=== PATIENT | female | born 1980 | race Caucasian/White ===

== ENCOUNTER 2020-06-16 19:00 | Outpatient (RCR) | payer OTHER, SELFPAY | END 2020-06-16 20:00 | disposition home or self-care (01) | LOC: EMPH 19:00 | PROVIDERS: Referring Provider Family Medicine Geriatric Medicine; Visit Provider Family Medicine Geriatric Medicine | DX: Z11.59 Encounter for screening for other viral diseases (principal) | CPT/HCPCS: 87635; U0003 ==

== ENCOUNTER 2020-07-17 17:00 | Outpatient (RCR) | payer OTHER, SELFPAY | END 2020-07-19 23:59 | LOC: EMPH 17:00 | PROVIDERS: Referring Provider Family Medicine Geriatric Medicine; Visit Provider Family Medicine Geriatric Medicine | DX: Z03.818 Encounter for observation for suspected exposure to other biological agents ruled out (principal) | CPT/HCPCS: 87426 ==

== ENCOUNTER → 2020-07-17 18:13 | Outpatient (CLI) | payer OTHER, SELFPAY | PROVIDERS: Visit Provider Family Medicine Geriatric Medicine | DX: Z00.00 Encounter for general adult medical examination without abnormal findings (principal) | CPT/HCPCS: 87426 ==

== ENCOUNTER 2020-08-13 10:49 | Outpatient (RCR) | payer OTHER, SELFPAY | END 2020-08-18 23:59 | LOC: EMPH 10:49 | PROVIDERS: Referring Provider Family Medicine Geriatric Medicine; Visit Provider Family Medicine Geriatric Medicine | DX: Z03.818 Encounter for observation for suspected exposure to other biological agents ruled out (principal) | CPT/HCPCS: 87426 ==

== ENCOUNTER 2020-09-17 16:52 | Outpatient (RCR) | payer OTHER, SELFPAY | END 2020-09-18 23:59 | LOC: EMPH 16:52 | PROVIDERS: Referring Provider Family Medicine Geriatric Medicine; Visit Provider Family Medicine Geriatric Medicine | DX: Z03.818 Encounter for observation for suspected exposure to other biological agents ruled out (principal) | CPT/HCPCS: 87426 ==

== ENCOUNTER 2020-10-06 08:46 | Outpatient (RCR) | payer OTHER, SELFPAY | END 2020-10-19 23:59 | LOC: EMPH 08:46 | PROVIDERS: Referring Provider Family Medicine Geriatric Medicine; Visit Provider Family Medicine Geriatric Medicine | DX: Z03.818 Encounter for observation for suspected exposure to other biological agents ruled out (principal) | CPT/HCPCS: 87426 ==

== ENCOUNTER 2021-02-09 08:13 | Outpatient (RCR) | payer OTHER, SELFPAY | END 2021-02-16 23:59 | LOC: EMPH 08:13 | PROVIDERS: Visit Provider Family Medicine Geriatric Medicine | DX: Z03.818 Encounter for observation for suspected exposure to other biological agents ruled out (principal) | CPT/HCPCS: 87426 ==

== ENCOUNTER 2021-03-18 19:43 | Outpatient (RCR) | payer OTHER, SELFPAY | END 2021-03-18 23:59 | LOC: EMPH 19:43 | PROVIDERS: Visit Provider Family Medicine Geriatric Medicine | DX: Z03.818 Encounter for observation for suspected exposure to other biological agents ruled out (principal) | CPT/HCPCS: 87426 ==

== ENCOUNTER 2021-04-09 20:04 | Observation (INO) | payer OTHER, SELFPAY ==
[2021-04-09 20:05] VITALS: BP 140/105; PULSE 82; RESP 16; TEMP 36.3; O2SAT 99; BMI 23.7
--- NOTE | 2021-04-09 20:23 | EDS_ITS ---
HPI History of Present Illness Chief Complaint: Flank Pain Detail of Chief Complaint: Left flank pain that started yesterday. Informant: patient Narrative Narrative: Patient describes discomfort to the left upper quadrant that radiates through to her back. Pain is been continuous. Tylenol seems to take the edge off of it. Patient has history of kidney stones but this feels somewhat different. She denies urinary symptoms. She denies fever. She is had some mild nausea but no vomiting. Pain worse with certain movements and deep breath. Patient states that she takes Excedrin daily for headaches. She denies any blood in her stool or black tarry stools. Patient does have history of constipation but has had normal bowel movements last several days in a row. Prior similar symptoms: No PFSH PFSH Medical History (Updated 04/09/21 @ 23:[address] Cari Gunter, DO) Kidney stones Pneumonia Home Medications NK 04/09/21 [History Last Taken Unknown] Allergy/AdvReac Type Severity Reaction Status Date / Time No Known Allergies Allergy Verified 04/09/21 20:26 Surgical History (Updated 04/09/21 @ 20:54 by Vi Coker) H/O: hysterectomy Social History (Updated 11/24/17 @ 15:41 by Charles DIAZ, PA) Smoking Status: Never smoker ROS ROS ED Constitutional Constitutional ED: Reports systems reviewed and no addt'l complaints, except as documented; Denies body ache(s), change in weight or chills Eyes Eyes: Denies acute decrease in peripheral vision, change in vision, double vision or loss of vision ENT ENT ED: Reports none; Denies ear pain, lip swelling, loss taste/smell, neck pain, otalgia or sore throat Cardiovascular Cardiovascular: Reports none; Denies abdominal pain, chest pain with activity, leg edema, lightheadedness, palpitations, rapid heart rate or syncope Respiratory/Chest Respiratory/Chest: Reports none; Denies change in mental status, dry cough, dyspnea, hemoptysis, shortness of breath at rest or shortness of breath with exertion Gastrointestinal Gastrointestinal: Reports none, abdominal pain and nausea; Denies change in stool character, diarrhea, hematemesis, hematochezia, melena, rectal bleeding or vomiting Genitourinary Genitourinary ED: Reports none; Denies abdominal discomfort, anuria, dysuria, genital pain or polyuria Musculoskeletal Musculoskeletal: Reports none and back pain; Denies arthralgias, difficulty walking, extremity pain, muscle weakness or myalgias Integumentary Reports none; Denies abscess or rash Neurologic Neurologic: Reports none; Denies abnormal gait, confusion, focal weakness, frequent falls, headache(s), loss of vision, numbness, paresthesias, radicular pain, vertigo or weakness Psychiatric Psychiatric: Reports systems reviewed and no addt'l complaints, except as documented and none; Denies behavioral changes, confusion, difficulty concentrating, hallucinations, suicidal ideation, tactile hallucinations or visual hallucinations Endocrine Endocrinology: Denies none, cold intolerance, excessive sweating, fatigue or heat intolerance Hematologic/Lymphatic Hematologic/Lymphatic: Reports none; Denies anemia, easy bleeding or easy bruising Allergic/Immunologic Allergic/Immunologic ED: Denies as per HPI, none, lip swelling, mouth swelling, throat swelling, tongue swelling or hives EXAM Physical Exam Const Vital Signs: 04/09/21 20:05 Temperature 97.4 F L Temperature Source Temporal Pulse Rate 82 Respiratory Rate 16 Blood Pressure 140/105 H Blood Pressure Mean 116 Pulse Ox 99 Oxygen Delivery Method Room Air Positive well nourished and well developed General Appearance ED: well developed and NAD HEENT Reports TM's clear and moist mucous membranes normocephalic and atraumatic; Negative for trauma or tenderness Tympanic Membrane ED: Yes TM's clear Eyes PERRL and EOMs intact bilaterally General Eye ED: Negative for pale conjunctiva or scleral icterus Neck no lymphadenopathy, supple and no JVD General: Negative for tenderness Chest Wall inspection of chest normal and palpation of chest normal Chest: Negative for tenderness Resp normal respiratory effort and clear to auscultation bilaterally Effort and Inspection: Negative for respiratory distress or pain with movement Auscultation: Negative for rhonchi, wheezes or diminished lung sounds Cardio regular rate, regular rhythm, S1 normal heart sound, S2 normal heart sound and no murmurs Peripheral Pulses: pulses 2+ throughout GI normal to inspection, nondistended, normoactive bowel sounds, soft to palpation, non-tender, non-distended and no masses GI Narrative: Patient has tenderness palpation over the left upper quadrant with guarding. She has CVA tenderness on the left. There is no rebound, rigidity, or peritoneal signs. Palpation: tender Back/Spine no CVA tenderness and no thoracic nor lumbar tenderness Extremity normal to inspection General Extremety ED: Negative for edema General Extremity: Negative for edema Neuro oriented x3, CN's II-XII intact bilaterally, no sensory deficits noted and gait normal Sensorium / Orientation: awake, alert, oriented to person, oriented to place and oriented to time Motor Exam: strength 5/5 throughout and strength abnormal Psych mental status grossly normal Skin no rashes or lesions noted and no wounds MDM MDM MDM Narrative Medical decision making narrative: Patient required multiple doses of pain medication here. She was given morphine 4 mg as well as Dilaudid 1 mg followed by another milligram of Dilaudid 1 mg. Patient continues to complain of left upper abdomen pain. CT scan of her chest showed soft tissue mass in her left hilum and raise the possibility of sarcoid versus sequela from prior infection. She also had a nodular mass in her left lower lobe. Patient also was noted to have a heterogenous mass in her spleen. Patient will need evaluation by pulmonology and pain control. Patient to be admitted. Lab Data Attestation: I reviewed the patient's lab results. Labs: Laboratory Results - last 24 hr 04/09/21 04/09/21 04/09/21 20:40 20:40 20:40 WBC 7.5 RBC 4.64 Hgb 13.1 Hct 41.0 MCV 88.4 MCH 28.2 MCHC 32.0 RDW Std Deviation 41.5 RDW Coeff of Keely 13.0 Plt Count 315 MPV 10.2 Immature Gran % (Auto) 0.400 Neut % (Auto) 65.0 Lymph % (Auto) 25.5 [place] % (Auto) 7.3 Eos % (Auto) 1.5 Baso % (Auto) 0.3 Absolute Neuts (auto) 4.9 Absolute Lymphs (auto) 1.92 Nucleated RBC % 0 D-Dimer Quant (PE/DVT) 1.44 H* Sodium 139 Potassium 3.5 Chloride 106 Carbon Dioxide 28.0 Anion Gap 5 BUN 11 Creatinine 0.93 Estim Creat Clear Calc 67.18 Est GFR (MDRD) Af Amer 86 Est GFR (MDRD) Non-Af 71 BUN/Creatinine Ratio 11.8 Glucose 98 Lactic Acid Calcium 9.0 Total Bilirubin 0.50 AST 12 L ALT 17 Alkaline Phosphatase 90 Total Protein 7.7 Albumin 3.7 Globulin 4.0 Albumin/Globulin Ratio 0.9 Lipase 217 Urine Color Urine Clarity Urine pH Ur Specific [place] Urine Protein Urine Glucose (UA) Urine Ketones Urine Occult Blood Urine Nitrite Urine Bilirubin Urine Urobilinogen Ur Leukocyte Esterase Urine RBC Urine WBC Ur Squamous Epith Cells Urine Bacteria Urine Mucus 04/09/21 04/09/21 20:40 21:20 WBC RBC Hgb Hct MCV MCH MCHC RDW Std Deviation RDW Coeff of Keely Plt Count MPV Immature Gran % (Auto) Neut % (Auto) Lymph % (Auto) [place] % (Auto) Eos % (Auto) Baso % (Auto) Absolute Neuts (auto) Absolute Lymphs (auto) Nucleated RBC % D-Dimer Quant (PE/DVT) Sodium Potassium Chloride Carbon Dioxide Anion Gap BUN Creatinine Estim Creat Clear Calc Est GFR (MDRD) Af Amer Est GFR (MDRD) Non-Af BUN/Creatinine Ratio Glucose Lactic Acid 1.6 Calcium Total Bilirubin AST ALT Alkaline Phosphatase Total Protein Albumin Globulin Albumin/Globulin Ratio Lipase Urine Color Yellow Urine Clarity Clear Urine pH 6.0 Ur Specific [place] 1.020 Urine Protein 15 H Urine Glucose (UA) Normal Urine Ketones 5 H Urine Occult Blood Negative Urine Nitrite Negative Urine Bilirubin Negative Urine Urobilinogen Normal Ur Leukocyte Esterase Negative Urine RBC 0 SEEN Urine WBC 0-5 SEEN Ur Squamous Epith Cells 10-25 SEEN Urine Bacteria 2+ Urine Mucus 0 SEEN Radiography Diagnostic Testing: Radiology Impression Abdomen/Pelvis CT 04/09/21 21:33 IMPRESSION: Patchy airspace disease in the left lower lobe suggesting infection. Nodular masslike component in the left lung base. Otherwise, unremarkable exam. Electronically Signed: Rick Novak DO at 22:58 EDT Tel , Service support , Chest CTA 04/09/21 21:33 IMPRESSION: 1. 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 2. There is prominent benign appearing calcifications within the mediastinum and left hilar region however, underlying soft tissue mass in the left hilum as well. Possible old granulomatous disease versus sarcoidosis 3. Patchy airspace disease with nodular component in the left lower lobe. Infection cannot be excluded. Otherwise, the lungs are clear. 4. Heterogeneously enhancing mass in the spleen as detailed above. Nonspecific. Further evaluation is warranted. Recommend consultation with pulmonology as well as follow-up CT to further evaluate the left lower lobe after treatment. Electronically Signed: Rick DO Kishore at 23:07 EDT Tel , Service support , Discharge Plan Triage Chief Complaint: Flank Pain ED Provider: Cari Gunter Dx/Rx/DC Orders Clinical Impression: Intractable abdominal pain, Lung mass, Splenic mass Prescriptions: No Action NK RF: 0 Primary Care Provider: Karmen Cardona Referrals: Karmen Cardona PA [Primary Care Provider] - Disposition Disposition: Acute Care Hospital [facility]
[2021-04-09] MEDS: 0.9% Normal Saline 1,000 ML 125 ML IV (20:42)
[2021-04-09] MEDS: Ondansetron 4 MG/2 ML Vial IV (20:46)
[2021-04-09] MEDS: Ketorolac 30 MG/ML Syringe IV (20:47)
[2021-04-09] MEDS: Morphine 4 MG/ML Syringe IV (20:48)
[2021-04-09 21:07] LABS: Absolute Lymphocyte Count 1.92 X10^3/uL (0.83-4.51); Absolute Neutrophil Count 4.9 X10^3/uL (2.0-7.7); Basophil# 0.02 X10^3/uL; Basophil% 0.3 % (0-1); Eosinophil# 0.11 X10^3/uL; Eosinophils% 1.5 % (0-5); Hemoglobin 13.1 g/dL (12.0-15.0); Lymphocyte # 1.92 X10^3/ul (0.83-4.51); Lymphocyte % 25.5 % (19-41); Mean Corpuscular Hgb 28.2 pg (27.0-32.0); Mean Corpuscular Volume 88.4 fL (81-99); Mean Platelet Vol. 10.2 fl (6.2-12.0); Monocyte# 0.55 X10^3/uL; Monocyte% 7.3 % (0-10); NRBC Flagged by Analyzer 0 % (0-5); Neutrophil # 4.91 X10^3/uL (2.7-7.7); Platelet Count 315 K/mm3 (150-450); RBC Distribution Width SD 41.5 fl (35.1-43.9); Red Blood Count 4.64 M/mm3 (4.2-5.4); White Blood Count 7.5 K/mm3 (4.4-11.0)
[2021-04-09 21:20] LABS: Lactic Acid 1.6 mmol/L (0.4-1.9)
[2021-04-09 21:21] LABS: ALB/GLOB Ratio 0.9 RATIO (0.9-2.4); AST(SGOT) 12 U/L (15-37); Alanine Aminotransfer ALT/SGPT 17 U/L (13-56); Albumin, Serum 3.7 g/dL (3.2-5.0); Alkaline Phosphatase 90 U/L (45-117); Anion Gap 5 (5-15); BUN 11 mg/dL (7-18); BUN/Creat Ratio 11.8 RATIO (10-20); Chloride 106 mmol/L (98-107); Creatinine, Serum 0.93 mg/dL (0.55-1.02); EST Glomerular Filtration Rate 71 mL/min (>60); Est Glom Filt Rate - Afr Amer 86 mL/min (>60); Estimated Creatinine Clearance 67.18 ml/min; Glucose 98 mg/dL (74-106); Lipase 217 U/L (73-393); Potassium 3.5 mmol/L (3.5-5.1); Protein, Total 7.7 g/dL (6.4-8.2); Sodium Level 139 mmol/L (136-145)
[2021-04-09 21:29] LABS: Mucous, Urine 0 SEEN /hpf (<or=2+); Red Blood Cells-Urine 0 SEEN /hpf (0-5)
[2021-04-09 21:32] LABS: D-Dimer Quantitative (DVT/PE) 1.44 FEU/ug/m (0.27-0.49)
--- NOTE | 2021-04-09 21:33 | CT_ITS ---
STUDY: CTA CHEST REASON FOR EXAM: Female, 40 years old. elevated d-dimer RADIATION DOSAGE (If Supplied By Facility): CTDIvol = ( 13.92 ) mGy, DLP = ( 409.06 ) mGycm TECHNIQUE: The examination was performed with the intravenous administration of IV 75mL Isovue-370. Post-processing of the angiographic images was performed, with multiplanar reformation and 3D reconstruction. Individualized dose optimization techniques were used for this CT. COMPARISON: None. 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 There is prominent benign-appearing calcified lymph nodes in the left hilar region with a underlying soft tissue mass measuring 3.3 x 1.9 cm. Unsure if this is related to prior granulomatous disease. Normal thoracic aorta and visualized great vessels. There is no demonstrated aortic dissection. Normal heart and pericardium. Normal mediastinum. Normal hilar regions. Normal visualized trachea and bronchi. Patchy airspace disease in the left lower lobe with nodular masslike component measuring 2.0 x 1.4 cm. Otherwise, the lungs are clear. Normal chest wall structures. Normal osseous structures. There appears to be an ill-defined enhancing mass in the spleen measuring 3.[address]/CTA Chest W/WO Contrast IMPRESSION: 1. 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 2. There is prominent benign appearing calcifications within the mediastinum and left hilar region however, underlying soft tissue mass in the left hilum as well. Possible old granulomatous disease versus sarcoidosis 3. Patchy airspace disease with nodular component in the left lower lobe. Infection cannot be excluded. Otherwise, the lungs are clear. 4. Heterogeneously enhancing mass in the spleen as detailed above. Nonspecific. Further evaluation is warranted. Recommend consultation with pulmonology as well as follow-up CT to further evaluate the left lower lobe after treatment. Electronically Signed: Rick Novak DO at 23:07 EDT Tel , Service support ,
--- NOTE | 2021-04-09 21:33 | CT_ITS ---
STUDY: CT ABDOMEN AND PELVIS WITHOUT CONTRAST REASON FOR EXAM: Female, 40 years old. left flank pain RADIATION DOSAGE (If Supplied By Facility): CTDIvol = ( 6.54 ) mGy, DLP = ( 326.98 ) mGycm TECHNIQUE: Transaxial images were obtained from the dome of the diaphragm to the symphysis pubis without oral contrast, and without intravenous contrast. Sagittal and coronal images were reconstructed. Individualized dose optimization techniques were used for this CT. COMPARISON: None. FINDINGS: Patchy airspace disease in the left lower lobe suggesting infection. There is a nodular masslike component measuring 2.1 x 1.5 cm. The visualized portions of the heart are within normal limits. Normal liver. Normal gallbladder and extrahepatic biliary system. There are multiple benign calcified granulomata of the spleen. Normal pancreas. Normal bilateral adrenal glands. Normal right kidney. Normal left kidney. Normal visualized stomach. Normal small intestine. Normal colon. The appendix is visualized and appears normal. Normal abdominal aorta. Normal inferior vena cava. Normal retroperitoneum. Normal urinary bladder. There is absence of the uterus consistent with a prior hysterectomy. Normal abdominal wall. Normal osseous structures. CT/Abdomen/Pelvis without Cont IMPRESSION: Patchy airspace disease in the left lower lobe suggesting infection. Nodular masslike component in the left lung base. Otherwise, unremarkable exam. Electronically Signed: Rick Novak DO at 22:58 EDT Tel , Service support ,
[2021-04-09 21:37] LABS: Color, Urine Yellow (Yellow); Glucose, Dipstick Normal (Normal); Ketone-Dipstick 5 mg/dl (Negative); Leukocyte Esterase-Dipstick Negative /ul (Negative); Nitrite-Dipstick Negative (Negative); Occult Blood-Urine Negative /ul (Negative); Protein-Dipstick 15 mg/dl (Negative); Urine Bilirubin Dipstick Negative (Negative); Urine Clarity Clear (Clear); Urine Urobilinogen Normal (Normal)
[2021-04-09] MEDS: HYDROmorphone 1 MG/ML Syringe IV ×2 (21:44→22:22)
[2021-04-09 22:24] LABS: Squamous Epithelial Cells - UA 10-25 SEEN /hpf (5-10); White Blood Cells 0-5 SEEN /hpf (0-5)
[2021-04-09 22:25] LABS: Bacteria 2+ /hpf (None Seen)
[2021-04-10] VITALS (7 sets, daily range): BP systolic 122–133; BP diastolic 75–92; PULSE 63–91; RESP 16–18; TEMP 36.4–36.7; O2SAT 97–100; BMI 24.9
[2021-04-10] MEDS: fentaNYL 100 MCG/2 ML Ampul 50 MCG IV ×2 (00:06→01:26)
--- NOTE | 2021-04-10 01:13 | HP.PCM.HOS_ITS ---
HPI - General General Date of Admission: 04/10/21 HPI Narrative ED JI, is a 40 F with a significant history of kidney stone; partial hysterectomy and salpingotomy who presents to the emergency department with excruciating left upper quadrant abdominal pain. Her pain started a day before presentation and it has progressively worsened. 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 While working at the ED she had to stop and check herself in for medical treatment. She describes her pain as a sharp. The pain is nonradiating. The pain improves with sitting up. The pain aggravates with taking a deep breath; moving or lying down. At the emergency department she required multiple doses of pain medications. At the onset of her symptoms she had nausea. Her nausea has since resolved. She had a COVID-19 infection in October 2020 and has still not regained back her taste sensation. She reports severe illness with the COVID-19 infection. [facility] Medical History Anxiety Kidney stones Migraines Pneumonia Home Medications NK 04/09/21 [History Last Taken Unknown] Allergy/AdvReac Type Severity Reaction Status Date / Time No Known Allergies Allergy Verified 04/09/21 20:26 Family History Other Cancer Diabetes Heart disease Surgical History H/O: hysterectomy Social History Smoking Status: Never smoker ROS ROS Narrative Constitutional: Denies anorexia and change in weight Eyes: Denies blurry vision, change in eye color, change in vision, discharge from eye(s), double vision, erythema, eye pain, loss of vision or other HEENT: Denies abnormal hearing, dysphagia, ear pain, epistaxis, headache(s), hearing loss, nasal congestion, nasal discharge, post nasal drip, sinus pressure, sore throat or other Cardiovascular: Report/Denies chest pain. Denies dyspnea on exertion, orthopnea and paroxysmal nocturnal dyspnea Respiratory/Chest: Reports cough. Denies shortness of breath with exertion and wheezing Gastrointestinal: Reports abdominal pain and nausea. Denies coffee ground emesis, constipation, diarrhea, dyspepsia, hematemesis, hematochezia, loose stools, melena, vomiting or other Genitourinary: Denies burning urination, difficulty urinating, dysuria, hematuria, nocturia, urinary frequency, urinary hesitancy, urinary incontinence, urinary urgency or other Musculoskeletal: Denies arthralgias, back pain, joint pain, joint stiffness, joint swelling, myalgias, neck pain or other Neurologic: Denies abnormal gait, abnormal speech, confusion, disequilibrium, dizziness, focal weakness, headache(s), numbness, paresthesias, seizure-like activity, seizures, syncope, tingling, tremor(s) or other Psychiatric: Denies anxiety, depression, homicidal ideation, suicidal ideation or other Endocrinology: Denies change in body appearance, cold intolerance, excessive sweating, heat intolerance, polydipsia, polyuria or other Hematologic/Lymphatic: Denies anemia, easy bleeding, easy bruising, lymphadenopathy or other Integumentary: Denies ulcer on buttocks. Allergic/Immunologic: Denies rhinitis, hives, eczema, asthma or other Vital Signs Vital Signs Vital Signs: 04/09/21 20:05 04/10/21 00:12 04/10/21 01:07 Temperature 97.4 F L Temperature Source Temporal Pulse Rate 82 77 91 Respiratory Rate 16 16 16 Blood Pressure 140/105 H 133/83 H 124/85 H Blood Pressure Mean 116 99 98 Pulse Ox 99 100 100 Oxygen Delivery Method Room Air Room Air Room Air Weight Weight: 60.781 kg Body Mass Index (BMI) 23.7 Physical Exam Narrative Physical exam: General: Well-nourished, well-developed, no acute distress Head: Normocephalic, atraumatic, no tenderness Eyes: PERRLA, EOMI ENT, no trauma, moist mucous membranes, no rhinorrhea Neck: Nontender, full range of motion, no spinal tenderness, deformities, step- off CVS: Regular rate and rhythm Respiratory no acute distress, clear to auscultation bilaterally, chest wall nontender, no wheezing Abdomen: Soft, nondistended, normal bowel sounds. LUQ mild tender. L CVA tenderness. : Deferred Back: Nontender, no CVA tenderness, no midline spinal tenderness, deformities, step-offs Extremities: Nontender full range of motion, no trauma Skin: Normal color, no trauma, abrasions Neuro: Alert, oriented, cranial nerves II through XII grossly intact. Psychiatry: Normal mood. Normal affect. Not depressed. Not anxious. Results Lab / Micro Data Result Diagrams: 04/09/21 20:40 04/09/21 20:40 Labs: Laboratory Results - last 24 hr 04/09/21 20:40: WBC 7.5, RBC 4.64, Hgb 13.1, Hct 41.0, MCV 88.4, MCH 28.2, MCHC 32.0, RDW Std Deviation 41.5, RDW Coeff of Keely 13.0, Plt Count 315, MPV 10.2, Immature Gran % (Auto) 0.400, Neut % (Auto) 65.0, Lymph % (Auto) 25.5, Ness % (Auto) 7.3, Eos % (Auto) 1.5, Baso % (Auto) 0.3, Absolute Neuts (auto) 4.9, Absolute Lymphs (auto) 1.92, Nucleated RBC % 0 04/09/21 20:40: D-Dimer Quant (PE/DVT) 1.44 H* 04/09/21 20:40: Sodium 139, Potassium 3.5, Chloride 106, Carbon Dioxide 28.0, Anion Gap 5, BUN 11, Creatinine 0.93, Estim Creat Clear Calc 67.18, Est GFR (MDRD) Af Amer 86, Est GFR (MDRD) Non-Af 71, BUN/Creatinine Ratio 11.8, Glucose 98, Calcium 9.0, Total Bilirubin 0.50, AST 12 L, ALT 17, Alkaline Phosphatase 90, Total Protein 7.7, Albumin 3.7, Globulin 4.0, Albumin/Globulin Ratio 0.9, Lipase 217 04/09/21 20:40: Lactic Acid 1.6 04/09/21 21:20: Urine Color Yellow, Urine Clarity Clear, Urine pH 6.0, Ur Specific [place] 1.020, Urine Protein 15 H, Urine Glucose (UA) Normal, Urine Ketones 5 H, Urine Occult Blood Negative, Urine Nitrite Negative, Urine Bilirubin Negative, Urine Urobilinogen Normal, Ur Leukocyte Esterase Negative, Urine RBC 0 SEEN, Urine WBC 0-5 SEEN, Ur Squamous Epith Cells 10-25 SEEN, Urine Bacteria 2+, Urine Mucus 0 SEEN Radiology Impression Abdomen/Pelvis CT 04/09/21 21:33 IMPRESSION: Patchy airspace disease in the left lower lobe suggesting infection. Nodular masslike component in the left lung base. Otherwise, unremarkable exam. Electronically Signed: Rick SterlingDO johnathan at 22:58 EDT Tel , Service support , Chest CTA 04/09/21 21:33 IMPRESSION: 1. 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 2. There is prominent benign appearing calcifications within the mediastinum and left hilar region however, underlying soft tissue mass in the left hilum as well. Possible old granulomatous disease versus sarcoidosis 3. Patchy airspace disease with nodular component in the left lower lobe. Infection cannot be excluded. Otherwise, the lungs are clear. 4. Heterogeneously enhancing mass in the spleen as detailed above. Nonspecific. Further evaluation is warranted. Recommend consultation with pulmonology as well as follow-up CT to further evaluate the left lower lobe after treatment. Electronically Signed: Rick DO Kishore at 23:07 EDT Tel , Service support , Assessment & Plan Assessment/Plan (1) Lung mass: (2) Splenic mass: (3) Intractable abdominal pain: PLAN: Lung mass Review of emergency department labs showed normal white counts. D-dimer was admitted at 1.44. 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 Soft tissue mass in left ilium. Possible old granulomatosis disease versus sarcoidosis. Patchy airspace disease with nodular component in the left lower lobe. Independent interpretation of chest CTA showed left hilar mass. Fentanyl IV and Toradol IV ordered. However patient preferred Dilaudid as she f elt Dilaudid could last longer. Fentanyl IV discontinued. Dilaudid IV ordered. Antiemetics and bowel protocol in place. We will consult pulmonology for input. Splenic mass Per CT chest patient has heterogeneously enhancing mass in the spleen. Pain control as above. Recommend longitudinal follow-up with imaging or oncology referral upon discharge. DVT prophylaxis: Subcutaneous Lovenox. Charges/Coding Multi Select Codes Visit Charges Observation E&M Codin Initial observation care L3
[2021-04-10] MEDS: HYDROmorphone 1 MG/ML Syringe IV ×3 (02:30→08:23)
[2021-04-10] MEDS: oxyCODONE 5 MG Tablet PO ×2 (02:43→06:44)
[2021-04-10] MEDS: Acetaminophen 325 MG Tablet 650 MG PO (02:43)
[2021-04-10] MEDS: Ketorolac 30 MG/ML Syringe IV ×2 (04:02→10:20)
[2021-04-10] MEDS: 0.9% Saline Lock 10 ML Syringe IV ×7 (04:02→16:02)
[2021-04-10] MEDS: Ondansetron 4 MG/2 ML Vial IV (05:36)
[2021-04-10 06:08] LABS: Absolute Lymphocyte Count 2.69 X10^3/uL (0.83-4.51); Absolute Neutrophil Count 3.7 X10^3/uL (2.0-7.7); Basophil# 0.04 X10^3/uL; Basophil% 0.6 % (0-1); Eosinophils% 1.4 % (0-5); Hematocrit 33.7 % (37-47); Lymphocyte # 2.69 X10^3/ul (0.83-4.51); Lymphocyte % 37.9 % (19-41); Mean Corp Hgb Conc 32.6 g/dL (32-36); Mean Corpuscular Hgb 28.5 pg (27.0-32.0); Mean Corpuscular Volume 87.3 fL (81-99); Mean Platelet Vol. 9.8 fl (6.2-12.0); Monocyte# 0.55 X10^3/uL; Monocyte% 7.7 % (0-10); NRBC Flagged by Analyzer 0 % (0-5); Neutrophil % 52.1 % (47-70); Platelet Count 263 K/mm3 (150-450); RBC Distribution Width CV 12.8 % (11.6-14.6); RBC Distribution Width SD 40.6 fl (35.1-43.9); Red Blood Count 3.86 M/mm3 (4.2-5.4); White Blood Count 7.1 K/mm3 (4.4-11.0)
[2021-04-10 06:34] LABS: Anion Gap 6 (5-15); BUN 5 mg/dL (7-18); BUN/Creat Ratio 7.3 RATIO (10-20); Calcium,Total 8.1 mg/dL (8.5-10.1); Chloride 108 mmol/L (98-107); Creatinine, Serum 0.68 mg/dL (0.55-1.02); EST Glomerular Filtration Rate 101 mL/min (>60); Est Glom Filt Rate - Afr Amer 122 mL/min (>60); Estimated Creatinine Clearance 91.88 ml/min; Glucose 80 mg/dL (74-106); Potassium 3.4 mmol/L (3.5-5.1); Sodium Level 141 mmol/L (136-145)
[2021-04-10] MEDS: Enoxaparin 40 MG/0.4 ML Syringe SC (08:23)
--- NOTE | 2021-04-10 09:16 | US_ITS ---
STUDY: ABDOMINAL ULTRASOUND REASON FOR EXAM: Female, 40 years old. splenomegaly, unclear etiology TECHNIQUE: Transabdominal ultrasound was performed with real-time and static mireles scale imaging. TECHNICAL QUALITY: Adequate. COMPARISON: CT 04/09/2021 FINDINGS: Liver: The liver measures cm. There is normal echogenicity of the liver. The bile ducts are within normal limits. There is hepatic color flow. The direction of portal flow is hepatopetal. There is no demonstrated mass lesion. Portal vein measurement: Gallbladder: Normal distended gallbladder. The gallbladder wall measures 2 mm. There is a negative sonographic Martinez''s sign. There is no pericholecystic fluid. There is a solitary echogenic gallstone within the gallbladder. Common Bile Duct (C.B.D.): The common bile duct measures 4 mm. Pancreas: Normal size of the head, body and tail of the pancreas. There is normal echogenicity of the pancreas. There is no demonstrated pancreatic mass or cyst. Spleen: Normal size of the spleen. The spleen measures 11.6 cm. 3.5 cm isoechoic mass within the inferior aspect of the spleen corresponding to the mass seen on CT in correlation with CT the abdomen and pelvis with oral and intravenous contrast is recommended. Right Kidney: Normal size of the right kidney. The right kidney measures 10.1 cm. Normal renal cortex. The right cortex measures 1.3 cm. There is no demonstrated renal mass or cyst. There is no right hydronephrosis. Left Kidney: Normal size of the left kidney. The left kidney measures 9.6 cm. Normal renal cortex. The left cortex measures 1.4 cm. There is no demonstrated renal mass or cyst. There is no left hydronephrosis. Aorta: No abdominal aortic aneurysm. I.V.C.: The IVC is patent. There is no ascites. US/Abdomen Complete IMPRESSION: 1. Cholelithiasis. 2. 3.5 cm solid mass in the inferior aspect of the spleen in correlation with CT the abdomen pelvis with oral and intravenous contrast is recommended. Electronically Signed: Jerry Casey MD at 12:47 EDT Tel , Service support ,
[2021-04-10 09:32] LABS: Magnesium 1.8 mg/dL (1.6-2.6)
[2021-04-10 10:11] LABS: AST(SGOT) 12 U/L (15-37); Alanine Aminotransfer ALT/SGPT 14 U/L (13-56); Albumin, Serum 3.2 g/dL (3.2-5.0); Alkaline Phosphatase 72 U/L (45-117); Globulin 3.2 g/dL (2.2-4.2); Protein, Total 6.4 g/dL (6.4-8.2)
--- NOTE | 2021-04-10 10:33 | CON.PCM.ON_ITS ---
Assessment & Plan Assessment/Plan (1) Lung mass: Status: Acute Code(s): R91.8 - Other nonspecific abnormal finding of lung field Plan: Associated calcified L hilar nodes. Discussed differential diagnosis including Lung cancer and Sarcoidosis with Pt, needs CT guided bx of Lung nodule. Suggest obtaining CT guided bx of lung nodule, will follow with suggestions based on biopsy report. If discharged, can follow up in the C for further evaluation. (2) Splenic mass: Status: Acute Code(s): R16.1 - Splenomegaly, not elsewhere classified Plan: Wait for CT guided bx of lung nodule then decide on further evaluation. HPI Consult Data Date of Service:: 04/10/21 PCP / Referring Provider: JOE Draper Attending: Dr. Amanda Fairbanks MD Chief Complaint Chief Complaint: Asked to see patient for lung nodule, splenic mass. History of Present Illness History of Present Illness: 40-year-old woman presented with abdominal pain, CT scan on 04/09/2021 showed left lower lobe nodule, splenic mass, status post hysterectomy. She reports that she had CT of the chest done at [facility]. Advanced Directives Power of Auto Polisher: No Living Will: No [facility] [place] Medical History Anxiety Kidney stones Migraines Pneumonia Home Medications NK 04/09/21 [History Last Taken Unknown] Allergy/AdvReac Type Severity Reaction Status Date / Time No Known Allergies Allergy Verified 04/09/21 20:26 Family History Other Cancer Diabetes Heart disease Surgical History H/O: hysterectomy Social History Smoking Status: Never smoker ROS Constitutional Constitutional: Denies chills, fatigue, fever(s), night sweats, poor appetite, weight gain, weight loss or other ENT HEENT: Denies dysphagia, hoarseness, loss taste/smell, neck mass, odynophagia, sore throat, tinnitus or other Cardiovascular Cardiovascular: Denies chest pain, clubbing, diaphoresis or dyspnea Respiratory/Chest Respiratory/Chest: Denies chest tightness, cough or dyspnea Gastrointestinal Gastrointestinal: Reports abdominal pain; Denies anorexia or bloating Genitourinary Genitourinary: Denies change in urinary stream, dysuria, flank pain, hematuria, nocturia, testicular mass, urinary frequency, urinary hesitancy, urinary incontinence or other Musculoskeletal Musculoskeletal: Denies abnormal gait or back pain Integumentary Integumentary: Denies alopecia or changing lesions Neurologic Neurologic: Denies abnormal speech, behavior changes or confusion Psychiatric Psychiatric: Denies anxiety Endocrine Endocrinology: Denies cold intolerance Hematologic/Lymphatic Hematologic/Lymphatic: Denies easy bleeding, easy bruising, lymphadenopathy or other Physical Exam Const alert, oriented x3 and no apparent distress General Appearance: cooperative Orientation / Consciousness: oriented to person HEENT normocephalic Head and Scalp: atraumatic Eyes PERRL, EOMs intact bilaterally, conjunctivae normal and no scleral icterus Neck supple General: trachea midline Lymph Lymphatic: no lymphadenopathy noted Chest inspection of chest normal and inspection of breasts normal Resp normal respiratory effort Cardio regular rate, regular rhythm, S1 normal heart sound, S2 normal heart sound and no murmurs GI normal to inspection, nondistended, normoactive bowel sounds Bladder / Kidney Exam: no CVA tenderness Extremity normal to inspection, full ROM, normal capillary refill and no clubbing, cyanosis or edema Skin no rashes or lesions noted, No no wounds, No skin turgor normal, No no jaundice and No no petechiae General Skin Exam: Negative for dry skin, ecchymosis, erythema, jaundice, petechiae, purpura or venous stasis Lesions: No lesion noted Rashes: No rashes noted Neuro CN's II-XII intact bilaterally, moves all extremities and no focal motor deficits Psych mental status grossly normal Vital Signs Temperature 97.6 F L 04/10/21 08:21 Temperature Source Oral 04/10/21 08:21 Pulse Rate 64 04/10/21 08:21 Respiratory Rate 16 04/10/21 08:21 Respiratory Effort Non-Labored 04/10/21 04:14 Respiratory Depth Normal 04/10/21 04:14 Respiratory Pattern Normal 04/10/21 04:14 Blood Pressure 122/87 H 04/10/21 08:21 Blood Pressure Mean 98 04/10/21 08:21 Blood Pressure Source Monitor 04/10/21 08:21 Blood Pressure Position Semi-Fowlers 04/10/21 08:21 Blood Pressure Location Left Arm 04/10/21 08:21 Pulse Ox 99 04/10/21 08:21 Oxygen Delivery Method Room Air 04/10/21 08:21 Laboratory Results - last 24 hr 04/09/21 20:40: WBC 7.5, RBC 4.64, Hgb 13.1, Hct 41.0, MCV 88.4, MCH 28.2, MCHC 32.0, RDW Std Deviation 41.5, RDW Coeff of [place] 13.0, Plt Count 315, MPV 10.2, Immature Gran % (Auto) 0.400, Neut % (Auto) 65.0, Lymph % (Auto) 25.5, [place] % (Auto) 7.3, Eos % (Auto) 1.5, Baso % (Auto) 0.3, Absolute Neuts (auto) 4.9, Absolute Lymphs (auto) 1.92, Nucleated RBC % 0 04/09/21 20:40: D-Dimer Quant (PE/DVT) 1.44 H* 04/09/21 20:40: Sodium 139, Potassium 3.5, Chloride 106, Carbon Dioxide 28.0, Anion Gap 5, BUN 11, Creatinine 0.93, Estim Creat Clear Calc 67.18, Est GFR (MDRD) Af Amer 86, Est GFR (MDRD) Non-Af 71, BUN/Creatinine Ratio 11.8, Glucose 98, Calcium 9.0, Total Bilirubin 0.50, AST 12 L, ALT 17, Alkaline Phosphatase 90, Total Protein 7.7, Albumin 3.7, Globulin 4.0, Albumin/Globulin Ratio 0.9, Lipase 217 04/09/21 20:40: Lactic Acid 1.6 04/09/21 21:20: Urine Color Yellow, Urine Clarity Clear, Urine pH 6.0, Ur Specific [place] 1.020, Urine Protein 15 H, Urine Glucose (UA) Normal, Urine Ketones 5 H, Urine Occult Blood Negative, Urine Nitrite Negative, Urine Bilirubin Negative, Urine Urobilinogen Normal, Ur Leukocyte Esterase Negative, Urine RBC 0 SEEN, Urine WBC 0-5 SEEN, Ur Squamous Epith Cells 10-25 SEEN, Urine Bacteria 2+, Urine Mucus 0 SEEN 04/10/21 05:50: WBC 7.1, RBC 3.86 L, Hgb 11.0 L, Hct 33.7 L, MCV 87.3, MCH 28.5, MCHC 32.6, RDW Std Deviation 40.6, RDW Coeff of [place] 12.8, Plt Count 263, MPV 9.8, Immature Gran % (Auto) 0.300, Neut % (Auto) 52.1, Lymph % (Auto) 37.9, [place] % (Auto) 7.7, Eos % (Auto) 1.4, Baso % (Auto) 0.6, Absolute Neuts (auto) 3.7, Absolute Lymphs (auto) 2.69, Nucleated RBC % 0 04/10/21 05:50: Sodium 141, Potassium 3.4 L, Chloride 108 H, Carbon Dioxide 27.0, Anion Gap 6, BUN 5 L, Creatinine 0.68, Estim Creat Clear Calc 91.88, Est GFR (MDRD) Af Amer 122, Est GFR (MDRD) Non-Af 101, BUN/Creatinine Ratio 7.3 L, Glucose 80, Calcium 8.1 L 04/10/21 05:50: Magnesium 1.8 04/10/21 05:50: Total Bilirubin 0.50, Direct Bilirubin 0.10, AST 12 L, ALT 14, Alkaline Phosphatase 72, Total Protein 6.4, Albumin 3.2, Globulin 3.2 Diagnostic Data Abdomen/Pelvis CT 04/09/21 21:33 IMPRESSION: Patchy airspace disease in the left lower lobe suggesting infection. Nodular masslike component in the left lung base. Otherwise, unremarkable exam. Electronically Signed: Rick DO Kishore at 22:58 EDT Tel , Service support , Chest CTA 04/09/21 21:33 IMPRESSION: 1. 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 2. There is prominent benign appearing calcifications within the mediastinum and left hilar region however, underlying soft tissue mass in the left hilum as well. Possible old granulomatous disease versus sarcoidosis 3. Patchy airspace disease with nodular component in the left lower lobe. Infection cannot be excluded. Otherwise, the lungs are clear. 4. Heterogeneously enhancing mass in the spleen as detailed above. Nonspecific. Further evaluation is warranted. Recommend consultation with pulmonology as well as follow-up CT to further evaluate the left lower lobe after treatment. Electronically Signed: Rick Novak DO at 23:07 EDT Tel , Service support , Charges/Coding Visit Charges Office Visits / Consults: [id number] IP Consult L5
--- NOTE | 2021-04-10 11:27 | PCM.PN.HOSP ---
Subjective Subjective Patient was seen and examined. She complains of pain in the left abdomen. Denies any fever or chills. Denies any night sweats. She has had a 30 pound weight loss which has been intentional by the past 1 year. She has a family history of malignancy in her mother with bone cancer. Objective Data Objective Data Vital Signs: Vital Signs Temp Pulse Resp BP Pulse Ox 97.6 F L 64 16 122/87 H 99 04/10/21 08:21 04/10/21 08:21 04/10/21 08:21 04/10/21 08:21 04/10/21 08:21 Oxygen Delivery Method Room Air Weight: 63.9 kg Body Mass Index (BMI) 24.9 Intake & Output: Intake and Output for Last 24 Hours 04/08/21 04/09/21 04/10/21 23:59 23:59 23:59 Intake Total 429.17 / 429.17 Balance 429.17 / 429.17 Lab / Micro Data Result Diagrams: 04/10/21 05:50 04/10/21 05:50 Labs: Laboratory Results - last 24 hr 04/09/21 20:40: WBC 7.5, RBC 4.64, Hgb 13.1, Hct 41.0, MCV 88.4, MCH 28.2, MCHC 32.0, RDW Std Deviation 41.5, RDW Coeff of [place] 13.0, Plt Count 315, MPV 10.2, Immature Gran % (Auto) 0.400, Neut % (Auto) 65.0, Lymph % (Auto) 25.5, [place] % (Auto) 7.3, Eos % (Auto) 1.5, Baso % (Auto) 0.3, Absolute Neuts (auto) 4.9, Absolute Lymphs (auto) 1.92, Nucleated RBC % 0 04/09/21 20:40: D-Dimer Quant (PE/DVT) 1.44 H* 04/09/21 20:40: Sodium 139, Potassium 3.5, Chloride 106, Carbon Dioxide 28.0, Anion Gap 5, BUN 11, Creatinine 0.93, Estim Creat Clear Calc 67.18, Est GFR (MDRD) Af Amer 86, Est GFR (MDRD) Non-Af 71, BUN/Creatinine Ratio 11.8, Glucose 98, Calcium 9.0, Total Bilirubin 0.50, AST 12 L, ALT 17, Alkaline Phosphatase 90, Total Protein 7.7, Albumin 3.7, Globulin 4.0, Albumin/Globulin Ratio 0.9, Lipase 217 04/09/21 20:40: Lactic Acid 1.6 04/09/21 21:20: Urine Color Yellow, Urine Clarity Clear, Urine pH 6.0, Ur Specific [place] 1.020, Urine Protein 15 H, Urine Glucose (UA) Normal, Urine Ketones 5 H, Urine Occult Blood Negative, Urine Nitrite Negative, Urine Bilirubin Negative, Urine Urobilinogen Normal, Ur Leukocyte Esterase Negative, Urine RBC 0 SEEN, Urine WBC 0-5 SEEN, Ur Squamous Epith Cells 10-25 SEEN, Urine Bacteria 2+, Urine Mucus 0 SEEN 04/10/21 05:50: WBC 7.1, RBC 3.86 L, Hgb 11.0 L, Hct 33.7 L, MCV 87.3, MCH 28.5, MCHC 32.6, RDW Std Deviation 40.6, RDW Coeff of Keely 12.8, Plt Count 263, MPV 9.8, Immature Gran % (Auto) 0.300, Neut % (Auto) 52.1, Lymph % (Auto) 37.9, [place] % (Auto) 7.7, Eos % (Auto) 1.4, Baso % (Auto) 0.6, Absolute Neuts (auto) 3.7, Absolute Lymphs (auto) 2.69, Nucleated RBC % 0 04/10/21 05:50: Sodium 141, Potassium 3.4 L, Chloride 108 H, Carbon Dioxide 27.0, Anion Gap 6, BUN 5 L, Creatinine 0.68, Estim Creat Clear Calc 91.88, Est GFR (MDRD) Af Amer 122, Est GFR (MDRD) Non-Af 101, BUN/Creatinine Ratio 7.3 L, Glucose 80, Calcium 8.1 L 04/10/21 05:50: Magnesium 1.8 04/10/21 05:50: Total Bilirubin 0.50, Direct Bilirubin 0.10, AST 12 L, ALT 14, Alkaline Phosphatase 72, Total Protein 6.4, Albumin 3.2, Globulin 3.2 Radiography Diagnostic Testing: Radiology Impression Abdomen/Pelvis CT 04/09/21 21:33 IMPRESSION: Patchy airspace disease in the left lower lobe suggesting infection. Nodular masslike component in the left lung base. Otherwise, unremarkable exam. Electronically Signed: Rick Novak DO at 22:58 EDT Tel , Service support , Chest CTA 04/09/21 21:33 IMPRESSION: 1. 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 2. There is prominent benign appearing calcifications within the mediastinum and left hilar region however, underlying soft tissue mass in the left hilum as well. Possible old granulomatous disease versus sarcoidosis 3. Patchy airspace disease with nodular component in the left lower lobe. Infection cannot be excluded. Otherwise, the lungs are clear. 4. Heterogeneously enhancing mass in the spleen as detailed above. Nonspecific. Further evaluation is warranted. Recommend consultation with pulmonology as well as follow-up CT to further evaluate the left lower lobe after treatment. Electronically Signed: Rick Novak DO at 23:07 EDT Tel , Service support , Physical Exam Narrative Physical exam: General: Alert, Oriented x3, Cooperative, No apparent distress, Well developed HEENT: Atraumatic Oral: Moist Mucosa Neck: Supple Lungs: Clear to auscultation Cardiovascular: HS I+II, regular, no murmurs Abdomen: Bowel Sounds Present, Soft, Tender especially in left upper quadrant Extremities: No edema Skin: No rashes, No breakdown Neurological: Grossly intact Psych/Mental Status: Appropriate Assessment & Plan Assessment/Plan (1) Intractable abdominal pain: (2) Lung mass: (3) Splenic mass: PLAN: 1. Intractable abdominal pain secondary to splenic mass Continue on increased dose of oxycodone and hydromorphone as needed 2. 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 Lung mass seen on CTA of the chest, measures 3.3 x 1.9 cm Oncology recommends biopsy of lung mass, pulmonology consulted 4. DVT prophylaxis Lovenox subcu?Lovenox held in anticipation of biopsy Will need to be resumed after biopsy Charges/Coding Visit Charges Inpatient E&M: 83280 Subs Hosp L3
[2021-04-10] MEDS: HYDROmorphone 1 MG/ML Syringe 2 MG IV ×2 (12:53→16:01)
[2021-04-10] MEDS: Polyethylene Glycol 3350 17 GM PACKET PO (13:07)
[2021-04-10] MEDS: Senna/Docusate Sodium 1 Tablet 2 TABLET PO (13:11)
--- NOTE | 2021-04-10 13:34 | PCM.DC ---
Discharge Instructions Diet Discharge Diet: No restrictions Activity Discharge Activity: Return to Normal Activity Follow Up Care Test Results: Test results from this visit will be discussed in further detail at your follow-up appointment, if applicable. Discharge Plan Admission Admit Date/Time: 04/10/21 00:58 Primary Reason for Your Visit: Abdominal pain Attending Provider: Amanda Fairbanks Primary Care Provider: Karmen Cardona Consulting Providers: Eriberto Billy ; Deandre Morocho Instructions Additional Instructions / Restrictions: Continue on the pain regimen. Follow-up with radiology on Tuesday for biopsy of the lung nodule. Follow-up with pulmonology and oncology as scheduled Discharge Orders/Prescriptions Prescriptions: New oxycodone 5 mg Tablet 10 mg PO Q4H PRN PRN (Reason: Pain Score 5-7) 3 Days Qty: 12 RF: 0 polyethylene glycol 3350 17 gram Powder In Packet 17 g PO DAILY Qty: 30 RF: 0 sennosides-docusate sodium [Stool Softener-Stimulant Laxat] 8.6-50 mg Tablet 2 tab PO BID PRN PRN (Reason: Constipation) Qty: 60 RF: 0 Referrals / Follow Up: Eriberto Billy MD [STAFF PHYSICIAN] - (As scheduled) Deandre Morocho MD [NON-STAFF] - Within 2 Weeks (Within 2 weeks) Karmen Cardona PA [Primary Care Provider] - Within 2 Weeks Disposition Disposition (needs filled in before D/C Order can be placed): Home, Self Care
--- NOTE | 2021-04-10 14:33 | PCM.DC.SUM ---
Providers Date of Admission: 04/10/21 Date of Discharge: 04/10/21 Primary Care Physician: JOE Draper Consultations 04/10/21 05:51 Consult: [facility] / Pulmonary Medicine Routine Consulting Provider: Eriberto Billy Reason for Consult: lung mass EMERGENT Consult: No Notified: Yes Date Notified: 04/10/21 Time Notified: 06:03 Method of Notification: Text 04/10/21 09:22 Consult: Oncology/Hematology Routine Consulting Provider: Deandre Morocho Reason for Consult: Splenomegaly EMERGENT Consult: No Notified: Yes Date Notified: 04/10/21 Time Notified: 09:22 Method of Notification: Provider Initiated Reason For Visit: LEFT LUNG MASS Diagnosis Discharge Diagnosis (1) Intractable abdominal pain: Status: Acute Code(s): R10.9 - Unspecified abdominal pain (2) Lung mass: Status: Acute Code(s): R91.8 - Other nonspecific abnormal finding of lung field (3) Splenic mass: Status: Acute Code(s): R16.1 - Splenomegaly, not elsewhere classified Medications at Discharge Home Medications oxycodone 10 mg PO Q4H PRN PRN 3 Days #12 tab 04/10/21 polyethylene glycol 3350 17 g PO DAILY #30 ea 04/10/21 sennosides-docusate sodium [Stool Softener-Stimulant Laxat] 2 tab PO BID PRN PRN #60 tab 04/10/21 Hospital Course Operations None Procedures None Summary of Care Provided Minutes Spent on Discharge: 45 Hospital Course: 40-year-old with no significant past medical history who presents with intractable abdominal pain. CT of the abdomen and pelvis was significant for splenic mass. CTA of the chest was negative for acute PE, showed a lung mass. Patient was seen by oncology and pulmonology. Biopsy of the lung nodule was recommended by oncology. Patient's pain continues to be fairly controlled. She has an appointment on Tuesday for her lung biopsy. She will follow also with pulmonology and oncology. Physical Exam Narrative See progress note of the day Weight / BMI Weight Weight: 63.9 kg Body Mass Index (BMI) 24.9 ABG / Lab / Microbiology Data Result Diagrams: 04/10/21 05:50 04/10/21 05:50 Laboratory: Laboratory Results - last 24 hr 04/09/21 20:40: WBC 7.5, RBC 4.64, Hgb 13.1, Hct 41.0, MCV 88.4, MCH 28.2, MCHC 32.0, RDW Std Deviation 41.5, RDW Coeff of Ke[place] 13.0, Plt Count 315, MPV 10.2, Immature Gran % (Auto) 0.400, Neut % (Auto) 65.0, Lymph % (Auto) 25.5, [place] % (Auto) 7.3, Eos % (Auto) 1.5, Baso % (Auto) 0.3, Absolute Neuts (auto) 4.9, Absolute Lymphs (auto) 1.92, Nucleated RBC % 0 04/09/21 20:40: D-Dimer Quant (PE/DVT) 1.44 H* 04/09/21 20:40: Sodium 139, Potassium 3.5, Chloride 106, Carbon Dioxide 28.0, Anion Gap 5, BUN 11, Creatinine 0.93, Estim Creat Clear Calc 67.18, Est GFR (MDRD) Af Amer 86, Est GFR (MDRD) Non-Af 71, BUN/Creatinine Ratio 11.8, Glucose 98, Calcium 9.0, Total Bilirubin 0.50, AST 12 L, ALT 17, Alkaline Phosphatase 90, Total Protein 7.7, Albumin 3.7, Globulin 4.0, Albumin/Globulin Ratio 0.9, Lipase 217 04/09/21 20:40: Lactic Acid 1.6 04/09/21 21:20: Urine Color Yellow, Urine Clarity Clear, Urine pH 6.0, Ur Specific [place] 1.020, Urine Protein 15 H, Urine Glucose (UA) Normal, Urine Ketones 5 H, Urine Occult Blood Negative, Urine Nitrite Negative, Urine Bilirubin Negative, Urine Urobilinogen Normal, Ur Leukocyte Esterase Negative, Urine RBC 0 SEEN, Urine WBC 0-5 SEEN, Ur Squamous Epith Cells 10-25 SEEN, Urine Bacteria 2+, Urine Mucus 0 SEEN 04/10/21 05:50: WBC 7.1, RBC 3.86 L, Hgb 11.0 L, Hct 33.7 L, MCV 87.3, MCH 28.5, MCHC 32.6, RDW Std Deviation 40.6, RDW Coeff of [place] 12.8, Plt Count 263, MPV 9.8, Immature Gran % (Auto) 0.300, Neut % (Auto) 52.1, Lymph % (Auto) 37.9, [place] % (Auto) 7.7, Eos % (Auto) 1.4, Baso % (Auto) 0.6, Absolute Neuts (auto) 3.7, Absolute Lymphs (auto) 2.69, Nucleated RBC % 0 04/10/21 05:50: Sodium 141, Potassium 3.4 L, Chloride 108 H, Carbon Dioxide 27.0, Anion Gap 6, BUN 5 L, Creatinine 0.68, Estim Creat Clear Calc 91.88, Est GFR (MDRD) Af Amer 122, Est GFR (MDRD) Non-Af 101, BUN/Creatinine Ratio 7.3 L, Glucose 80, Calcium 8.1 L 04/10/21 05:50: Magnesium 1.8 04/10/21 05:50: Total Bilirubin 0.50, Direct Bilirubin 0.10, AST 12 L, ALT 14, Alkaline Phosphatase 72, Total Protein 6.4, Albumin 3.2, Globulin 3.2 Radiography Diagnostic Testing: Radiology Impression Abdomen/Pelvis CT 04/09/21 21:33 IMPRESSION: Patchy airspace disease in the left lower lobe suggesting infection. Nodular masslike component in the left lung base. Otherwise, unremarkable exam. Electronically Signed: Rick Novak DO at 22:58 EDT Tel , Service support , Chest CTA 04/09/21 21:33 IMPRESSION: 1. 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 2. There is prominent benign appearing calcifications within the mediastinum and left hilar region however, underlying soft tissue mass in the left hilum as well. Possible old granulomatous disease versus sarcoidosis 3. Patchy airspace disease with nodular component in the left lower lobe. Infection cannot be excluded. Otherwise, the lungs are clear. 4. Heterogeneously enhancing mass in the spleen as detailed above. Nonspecific. Further evaluation is warranted. Recommend consultation with pulmonology as well as follow-up CT to further evaluate the left lower lobe after treatment. Electronically Signed: Rick Novak DO at 23:07 EDT Tel , Service support , Abdomen Ultrasound 04/10/21 09:16 IMPRESSION: 1. Cholelithiasis. 2. 3.5 cm solid mass in the inferior aspect of the spleen in correlation with CT the abdomen pelvis with oral and intravenous contrast is recommended. Electronically Signed: Jerry Casey MD at 12:47 EDT Tel , Service support , D/C Instructions Discharge Diet: No restrictions Meaningful Use Info Meaningful Use Diagnoses (Choose all that apply): None applicable Discharge Plan Admission Admit Date/Time: 04/10/21 00:58 Primary Reason for Your Visit: Abdominal pain Attending Provider: Amanda Fairbanks Primary Care Provider: Karmen Cardona Consulting Providers: Eriberto Billy ; Deandre Morocho Instructions Additional Instructions / Restrictions: Continue on the pain regimen. Follow-up with radiology on Tuesday for biopsy of the lung nodule. Follow-up with pulmonology and oncology as scheduled Discharge Orders/Prescriptions Prescriptions: New oxycodone 5 mg Tablet 10 mg PO Q4H PRN PRN (Reason: Pain Score 5-7) 3 Days Qty: 12 RF: 0 polyethylene glycol 3350 17 gram Powder In Packet 17 g PO DAILY Qty: 30 RF: 0 sennosides-docusate sodium [Stool Softener-Stimulant Laxat] 8.6-50 mg Tablet 2 tab PO BID PRN PRN (Reason: Constipation) Qty: 60 RF: 0 Referrals / Follow Up: Eriberto Billy MD [STAFF PHYSICIAN] - (As scheduled) Deandre Morocho MD [NON-STAFF] - Within 2 Weeks (Within 2 weeks) Karmen Cardona PA [Primary Care Provider] - Within 2 Weeks Disposition Disposition (needs filled in before D/C Order can be placed): Home, Self Care Charges/Coding Visit Charges OBSV E&M: 31947 Observation care discharge
[2021-04-10 14:37] LABS: HIV - WCH Non-Reactive (Nonreactive)
[2021-04-10] MEDS: Potassium Chloride Oral Tablet 20 MEQ 60 MEQ PO (14:58)
--- NOTE | 2021-04-10 14:58 | EX.PCM.CONCC ---
Assessment & Plan Assessment/Plan (1) Lung mass: (2) Splenic mass: PLAN: Clinical suspicion is splenic masses leading to most of the discomfort. Images have been requested, but CT scan from 2019 appears to be similar in findings. Patient is not reporting any B type symptoms to suggest lymphoma. Given stability over 2 years potentially, malignancy would be less likely. Previous granulomatous disease such as fungal pneumonia or tuberculosis would be a consideration. Patient did have a negative PPD 3 years ago. Did discuss with the patient that EBUS would be an option for biopsy. Patient is to have a CT-guided biopsy on Tuesday. Patient will follow up in my office at 9:15 AM on April 17. No change in medications at this time. Patient would likely do better with Toradol or NSAIDs than narcotics in my opinion. Defer to hospitalist. HPI Consult Data Date of Consult: 04/10/21 HPI Narrative HPI Narrative: ED JI is a 40 F, with past medical history listed below, who presents to [facility] on 04/10/2021 secondary to abnormal imaging. Patient reportedly had presented to the emergency department for work and had significant discomfort in the left upper quadrant with radiation to the back. This pain was described as continuous and sharp in nature. Patient had some mild nausea, but no vomiting. Patient states that pain was worse with twisting or taking a deep breath. Patient does take Excedrin routinely for headaches, but denies any bloody or black tarry stools. Patient did state that Tylenol took the edge off. Patient has had some issues with constipation in the past which contributed to poor diet. In the ER, patient was afebrile at 97.4 ?F, but hypertensive at 140/105. Patient was not tachycardic and saturating 99% on room air. Laboratory data was relatively unremarkable except for an elevated D-dimer at 1.44. UA was unremarkable and lactate was 1.6. Given elevated D-dimer, patient had a CT of the abdomen and chest showing a patchy left lower lobe infiltrates and a possible mass in the left lower lobe patient also had hilar lymphadenopathy with calcifications. Patient also noted to have a splenic finding. Since being admitted, patient continues to have left abdominal pain. Patient states this is relatively unresponsive to narcotics, but Toradol has been helpful. Patient denies any new symptoms. Review of systems otherwise negative from a constitutional, HEENT, respiratory, cardiovascular, GI, genitourinary, musculoskeletal, skin, neurologic, psychiatric and hematologic system unless stated above. [facility] Medical History Anxiety Kidney stones Migraines Pneumonia Home Medications oxycodone 10 mg PO Q4H PRN PRN 3 Days #12 tab 04/10/21 [Rx Last Taken Unknown] polyethylene glycol 3350 17 g PO DAILY #30 ea 04/10/21 [Rx Last Taken Unknown] sennosides-docusate sodium [Stool Softener-Stimulant Laxat] 2 tab PO BID PRN PRN #60 tab 04/10/21 [Rx Last Taken Unknown] Allergy/AdvReac Type Severity Reaction Status Date / Time No Known Allergies Allergy Verified 04/09/21 20:26 Family History Other Cancer Diabetes Heart disease Surgical History H/O: hysterectomy Social History Smoking Status: Never smoker ROS ROS Narrative See HPI Physical Exam Const alert, oriented x3 and no apparent distress General Appearance: cooperative and well developed HEENT normocephalic, head/scalp atraumatic and moist oral mucous membranes Eyes PERRL and EOMs intact bilaterally Neck full ROM and no lymphadenopathy Chest inspection of chest normal Resp normal respiratory effort and no use of accessory muscles Effort and Inspection: able to speak in complete sentences Auscultation: clear to auscultation bilaterally; Negative for rales, rhonchi or wheezes Percussion: Negative for dullness Cardio regular rate, regular rhythm, S1 normal heart sound, S2 normal heart sound, no murmurs, no rub and no gallops GI normal to inspection, nondistended, normoactive bowel sounds no CVA tenderness Extremity no clubbing, cyanosis or edema Skin no rashes or lesions noted Neuro oriented x3, CN's II-XII intact bilaterally, moves all extremities and no focal motor deficits Psych cooperative and affect normal Medical Records Data Attestation: I reviewed the patient's medical records Medical records narrative: Patient reportedly did have a CT scan at an outside facility in 2019. The report was available for review and suggestive of similar type findings. However, images are not available at this time. Lab / Micro Data Result Diagrams: 04/10/21 05:50 04/10/21 05:50 Labs: Laboratory Results - last 24 hr 04/09/21 20:40: WBC 7.5, RBC 4.64, Hgb 13.1, Hct 41.0, MCV 88.4, MCH 28.2, MCHC 32.0, RDW Std Deviation 41.5, RDW Coeff of Keely 13.0, Plt Count 315, MPV 10.2, Immature Gran % (Auto) 0.400, Neut % (Auto) 65.0, Lymph % (Auto) 25.5, Ventura % (Auto) 7.3, Eos % (Auto) 1.5, Baso % (Auto) 0.3, Absolute Neuts (auto) 4.9, Absolute Lymphs (auto) 1.92, Nucleated RBC % 0 04/09/21 20:40: D-Dimer Quant (PE/DVT) 1.44 H* 04/09/21 20:40: Sodium 139, Potassium 3.5, Chloride 106, Carbon Dioxide 28.0, Anion Gap 5, BUN 11, Creatinine 0.93, Estim Creat Clear Calc 67.18, Est GFR (MDRD) Af Amer 86, Est GFR (MDRD) Non-Af 71, BUN/Creatinine Ratio 11.8, Glucose 98, Calcium 9.0, Total Bilirubin 0.50, AST 12 L, ALT 17, Alkaline Phosphatase 90, Total Protein 7.7, Albumin 3.7, Globulin 4.0, Albumin/Globulin Ratio 0.9, Lipase 217 04/09/21 20:40: Lactic Acid 1.6 04/09/21 21:20: Urine Color Yellow, Urine Clarity Clear, Urine pH 6.0, Ur Specific Marion 1.020, Urine Protein 15 H, Urine Glucose (UA) Normal, Urine Ketones 5 H, Urine Occult Blood Negative, Urine Nitrite Negative, Urine Bilirubin Negative, Urine Urobilinogen Normal, Ur Leukocyte Esterase Negative, Urine RBC 0 SEEN, Urine WBC 0-5 SEEN, Ur Squamous Epith Cells 10-25 SEEN, Urine Bacteria 2+, Urine Mucus 0 SEEN 04/10/21 05:50: WBC 7.1, RBC 3.86 L, Hgb 11.0 L, Hct 33.7 L, MCV 87.3, MCH 28.5, MCHC 32.6, RDW Std Deviation 40.6, RDW Coeff of Keely 12.8, Plt Count 263, MPV 9.8, Immature Gran % (Auto) 0.300, Neut % (Auto) 52.1, Lymph % (Auto) 37.9, Ventura % (Auto) 7.7, Eos % (Auto) 1.4, Baso % (Auto) 0.6, Absolute Neuts (auto) 3.7, Absolute Lymphs (auto) 2.69, Nucleated RBC % 0 04/10/21 05:50: Sodium 141, Potassium 3.4 L, Chloride 108 H, Carbon Dioxide 27.0, Anion Gap 6, BUN 5 L, Creatinine 0.68, Estim Creat Clear Calc 91.88, Est GFR (MDRD) Af Amer 122, Est GFR (MDRD) Non-Af 101, BUN/Creatinine Ratio 7.3 L, Glucose 80, Calcium 8.1 L 04/10/21 05:50: Magnesium 1.8 04/10/21 05:50: Total Bilirubin 0.50, Direct Bilirubin 0.10, AST 12 L, ALT 14, Alkaline Phosphatase 72, Total Protein 6.4, Albumin 3.2, Globulin 3.2 04/10/21 10:05: HIV 1&2 Antibody Non-Reactive Radiology Impression Abdomen/Pelvis CT 04/09/21 21:33 IMPRESSION: Patchy airspace disease in the left lower lobe suggesting infection. Nodular masslike component in the left lung base. Otherwise, unremarkable exam. Electronically Signed: Rick Novak DO at 22:58 EDT Tel , Service support , Chest CTA 04/09/21 21:33 IMPRESSION: 1. 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 2. There is prominent benign appearing calcifications within the mediastinum and left hilar region however, underlying soft tissue mass in the left hilum as well. Possible old granulomatous disease versus sarcoidosis 3. Patchy airspace disease with nodular component in the left lower lobe. Infection cannot be excluded. Otherwise, the lungs are clear. 4. Heterogeneously enhancing mass in the spleen as detailed above. Nonspecific. Further evaluation is warranted. Recommend consultation with pulmonology as well as follow-up CT to further evaluate the left lower lobe after treatment. Electronically Signed: Rick Novak DO at 23:07 EDT Tel , Service support , Abdomen Ultrasound 04/10/21 09:16 IMPRESSION: 1. Cholelithiasis. 2. 3.5 cm solid mass in the inferior aspect of the spleen in correlation with CT the abdomen pelvis with oral and intravenous contrast is recommended. Electronically Signed: Jerry Casey MD at 12:47 EDT Tel , Service support , ADDENDUM: 04/10/21 1434 Charges/Coding Visit Charges Inpatient E&M: 57225 Init Hosp L2
== END 2021-04-10 16:51 | disposition home or self-care (01) ==
LOC: ED 04-10 00:39 → MS3 04-10 07:15
PROVIDERS: Admitting Provider Hospitalist; Emergency Provider Emergency Medicine; PCP Physician Assistant; Visit Provider Internal Medicine
DX: R16.1 Splenomegaly, not elsewhere classified (principal); R91.8 Other nonspecific abnormal finding of lung field; Z86.16 Personal history of COVID-19
CPT/HCPCS: 36415; 71275; 74176; 76700; 80048; 80053; 80076; 81001; 83605; 83690; 83735; 85025; 85379; 86703; 96372; 96374; 96375; 96376; 99218; J7030; Q9967; A4216; G0378; J2405

== ENCOUNTER → 2021-04-14 08:27 | Outpatient (CLI) | payer OTHER, SELFPAY ==
[2021-04-10 02:12] VITALS: BMI 24.9
[2021-04-14] VITALS (12 sets, daily range): BP systolic 113–143; BP diastolic 80–107; PULSE 74–92; RESP 10–21; TEMP 36.7; O2SAT 96–100; BMI 23.0
--- NOTE | 2021-04-14 | ASPIGT_PTH ---
PATIENT: ED JI LOC: CT U#:[id number] AGE/SX: 45/F ROOM: RE04/14/[address]: Dr. Deandre Morocho MD : 1980 BED: DIS: SPEC #: [id number] RECD: 04/14/21 10:06 STATUS: LOY SIMON #: [id number] VINCENT: 04/14/21 00:[address]: Deandre Morocho DEPT: SURGICAL PATHOLOGY RECD BY: Radames Cruz ENTERED: 04/14/21 10:07 SP TYPE: ASP RAD OT DR: JOE Draper Tissues: Lung, NOS Procedures: FNA Specimen Adequacy Special Stain Group II Surgery Specimen Level IV Imprint (control) HEADER OPERATION: CT-guided left lung biopsy PRE-OP DIAGNOSIS: Left lung nodule TISSUE SUBMITTED: Left lower lobe lung nodule, CT-guided MICROSCOPIC DIAGNOSIS Left lower lobe lung nodule, CT-guided core biopsy: Negative for malignancy. See comment. SJ:buck 04/15/2021 COMMENT The specimen is evaluated at the time of biopsy by Dr. Chaparro. Immediate Evaluation = Negative for malignant cells. Immunohistochemistry ([id number]) supports the above diagnosis. Specimen consists of fibrous tissue with degenerative changes. The findings may represent pleural plaque. Correlation with clinical, radiologic findings and appropriate follow up are necessary. Case has been reviewed in consultation with Dr. Crow who concurs with the above diagnosis. IDC:AM MICROSCOPIC DESCRIPTION Slides are reviewed. GROSS DESCRIPTION Received in fixative is one container labeled with the patient's name and designated left lung, CT-guided core biopsy. The specimen consists of a fragment of guillaume soft tissue measuring 1 cm in length and <0.1 cm in diameter. Also present in the container is one minute fragment of guillaume soft tissue measuring 0.1 cm in greatest dimension. The entire specimen is submitted in one cassette. Two touch imprints are prepared at the time of core biopsy. / ARIS:buck 04/14/21 TC:4 CPT: 81901, 69103
--- NOTE | 2021-04-14 | IMM_PTH ---
PATIENT: ED JI LOC: CT U#:[id number] AGE/SX: 45/F ROOM: RE04/14/[address]: Dr. Deandre Morocho MD : 1980 BED: DIS: SPEC #: [id number] RECD: 04/15/21 12:34 STATUS: LOY REQ #: [id number] VINCENT: 04/14/21 00:[address]: Deandre Morocho DEPT: IMMUNOHISTOCHEMISTRY RECD BY: Billie Jeong ENTERED: 04/15/21 12:36 SP TYPE: IMMUNO OTHR DR: JOE Draper Tissues: Left lower lobe of lung, NOS Procedures: Mohsen Ret (add) CD34 (add) CK8 (add) Vimentin (add) Pankeratin (initial) PHYSICIAN & INSTITUTION [place] [place] [id number] SPECIMEN INFORMATION: Tissue Source: Left lower lobe lung nodule Clinical Info: Left lower lobe lung nodule Specimen Number: [id number] CPT code: 28041, 80978 x4 METHODOLOGY: Deparaffinized sections of prefer/formalin-fixed tissue or PAP/DQ stained slides are incubated with monoclonal/polyclonal antibodies/oligonucleotide probes. Localization is made via biotin free immunoperoxidase method. Appropriate controls are performed and reacted as expected. Results on target cell population are indicated in the following table: RESULTS: ANTIBODY / CLONE RESULT AE1-3 (AE1/AE3/PCK26) positive CK8 (40ufwlA55) positive, focal Vimentin (V9) positive CD34 (QBEnd-10) positive, focal CALRET (polyclonal) positive, focal These tests were developed and their performance characteristics determined by [facility]. They may not have been cleared or approved by the U.S. Food and Drug Administration. The FDA has determined that such clearance or approval is not necessary. The above immunohistochemical/dualISH markers are ordered and reviewed by the Pathologist. INTERPRETATION: Left lower lobe lung nodule, CT-guided biopsy: Negative for malignancy. See comment. SJ:buck 04/16/2021 Comment: Findings may represent pleural plaque. Clinical correlation is necessary. Case has been reviewed in consultation with Dr. Crow who concurs with the above diagnosis. IDC:[email or web address]
--- NOTE | 2021-04-14 08:28 | CT_ITS ---
PROCEDURE: CT GUIDED CORE NEEDLE BIOPSY OF A posterior left lower lobe LUNG LESION INDICATION: Female, 40 years old. LUNG NODULE biopsy PHYSICIAN: Dr. JASMIN Marshall CONSENT: Written informed consent was obtained having explained the risks, benefits and alternatives in detail with the patient who accepted the risks and agreed to proceed. Laboratory review and clinical assessment was performed. CONSCIOUS SEDATION PROTOCOL: The Drugs used were: 2 mg Versed, IV., and 50 mcg Fentanyl, IV. The sedation time was: 20 minutes. Conscious sedation was started at 9:35 AM and terminated in 9 The conscious sedation protocol was independently monitored. RADIATION DOSAGE (If Supplied By Facility): CTDIvol = ( 10 ) mGy, DLP = ( 252.65 ) mGycm Individualized dose optimization techniques were used for this CT. TECHNIQUE: The patient was placed in the prone position. A noncontrast CT was performed to localize the lesion in the posterior aspect of the left lower lobe . The skin surface was prepped and draped in a sterile fashion. 1% lidocaine was used for local anesthesia. Using CT guidance, a 20-gauge coaxial biopsy device was advanced to the periphery of the lesion. A total of 5 core specimens were obtained. The specimens were placed in a formalin solution. A post procedure CT demonstrated a small pneumothorax. The patient tolerated the procedure well without adverse event. A negative biopsy does not exclude malignancy. Further imaging or clinical followup based on patient condition and degree of clinical suspicion for malignancy. Suggest rebiopsy, if biopsy results do not match with clinical scenario. CT/Biopsy/Inj or Needle Placement IMPRESSION: 1. CT directed core needle biopsy of the left lower lobe lung nodule using CT image guidance with image documentation as described. Pathology results are pending. 2. Conscious Sedation protocol utilized with independent monitoring. Electronically Signed: Arley Rodriguez MD at 11:03 EDT , Service support ,
[2021-04-14] MEDS: Lidocaine 2% (20 ml mdv) 20 ML Vial INFILT (09:34)
[2021-04-14] MEDS: Midazolam 2 MG/2 ML Syringe IV (09:35)
[2021-04-14] MEDS: fentaNYL 100 MCG/2 ML Ampul IV (09:38)
--- NOTE | 2021-04-14 10:10 | RAD_ITS ---
STUDY: X-RAY CHEST REASON FOR EXAM: Female, 40 years old. Pneumothorax -- immediately post lung biopsy TECHNIQUE: AP inspiration and expiration views. COMPARISON: None. FINDINGS: Immediate post left lung biopsy radiographs. There is evidence of a small left apical pneumothorax. RAD/Chest Insp/Exp 2 View IMPRESSION: Small left apical pneumothorax on the immediate post left lung biopsy radiographs. Electronically Signed: Arley Rodriguez MD at 10:38 EDT , Service support ,
--- NOTE | 2021-04-14 11:55 | RAD_ITS ---
STUDY: X-RAY CHEST REASON FOR EXAM: Female, 40 years old. Pneumothorax follow-up. TECHNIQUE: Single frontal view of the chest. COMPARISON: Earlier in the day. FINDINGS: Left pneumothorax described on the prior study has decreased. A small left apical pneumothorax remains. There is no demonstrated pleural abnormality. Normal size heart. Normal mediastinum and ca. Normal visualized pulmonary arteries. Normal visualized aortic arch and descending thoracic aorta. Normal visualized thoracic spine. Normal visualized ribs, clavicles, and shoulders. There is no demonstrated abnormality of the visualized soft tissue structures of the upper abdomen. RAD/Chest Insp/Exp 2 View IMPRESSION: Decrease in left apical pneumothorax. Electronically Signed: Lucho Gonzales MD at 12:07 EDT , Service support ,
== END | disposition home or self-care (01) ==
PROVIDERS: PCP Physician Assistant; Referring Provider Internal Medicine Medical Oncology; Visit Provider Internal Medicine Medical Oncology
DX: R91.8 Other nonspecific abnormal finding of lung field (principal); R16.1 Splenomegaly, not elsewhere classified; J95.811 Postprocedural pneumothorax; Y84.8 Other medical procedures as the cause of abnormal reaction of the patient, or of later complication, without mention of misadventure at the time of the procedure; Y92.239 Unspecified place in hospital as the place of occurrence of the external cause
CPT/HCPCS: 32408; 71046; 77012; 88172; 88305; 88313; 88341; 88342; 99156; J7040; A4216; C2613

== ENCOUNTER 2021-06-11 08:32 | Outpatient (RCR) | payer OTHER, SELFPAY | END 2021-06-18 23:59 | LOC: EMPH 08:32 | PROVIDERS: PCP Physician Assistant; Visit Provider Family Medicine Geriatric Medicine | DX: Z03.818 Encounter for observation for suspected exposure to other biological agents ruled out (principal) | CPT/HCPCS: 87426; 87635; U0005; U0003 ==

== ENCOUNTER 2021-11-13 05:38 | Emergency (ER) | payer OTHER, SELFPAY ==
[2021-11-13 05:39] VITALS: BP 137/97; PULSE 86; RESP 18; TEMP 36.4; O2SAT 99; BMI 26.6
--- NOTE | 2021-11-13 05:39 | RAD_ITS ---
STUDY: X-RAY CHEST REASON FOR EXAM: Female, 41 years old. Hemoptysis TECHNIQUE: PA and lateral views of the chest. COMPARISON: 04/14/2021 FINDINGS: Mild hazy opacification in the left base. No cavitary lesion or bronchiectasis detected. There is no demonstrated pleural abnormality. Normal size heart. Stable calcification and enlargement of the left hilum. Normal visualized pulmonary arteries. Normal visualized aortic arch and descending thoracic aorta. Normal visualized thoracic spine. Normal visualized ribs, clavicles, and shoulders. There is no demonstrated abnormality of the visualized soft tissue structures of the upper abdomen. RAD/Chest PA and Lateral IMPRESSION: Hazy airspace disease left base, possibly infiltrate or atelectasis. No cavitary lesion or bronchiectasis Stable calcification and left hilar enlargement. Electronically Signed: Mariella Yang MD at 6:07 EST Reading Location ID and State: , Service support ,
[2021-11-13 05:41] VITALS: O2SAT 98
--- NOTE | 2021-11-13 06:29 | EDS_ITS ---
HPI History of Present Illness Chief Complaint: Cough Narrative Narrative: Patient is a 41-year-old female with past medical history of a benign lung granuloma. She reports she has been feeling under the weather for the past few days and today began coughing and then developed bright red blood associated with the cough. She denies any history of bleeding disorder or blood thinner use. She states that the granuloma was biopsied and is reportedly benign but she does have concerned that it could have been misdiagnosed. Therefore with the cough and hemoptysis and concern for underlying infection versus possible lung mass patient presents for evaluation [facility] Medical History Anxiety Kidney stones Migraines Pneumonia Home Medications doxycycline monohydrate 100 mg PO BID #20 cap 11/13/21 [Rx Last Taken Unknown] promethazine-codeine 5 ml PO Q6H PRN 7 Days #140 ml 11/13/21 [Rx Last Taken Unknown] Allergy/AdvReac Type Severity Reaction Status Date / Time No Known Allergies Allergy Verified 04/17/21 09:03 Family History Other Cancer Diabetes Heart disease Surgical History H/O: hysterectomy Social History Smoking Status: Never smoker ROS [facility] ED Constitutional Constitutional ED: Denies chills or fever(s) ENT ENT ED: Reports sore throat Cardiovascular Cardiovascular: Denies chest pain Respiratory/Chest Respiratory/Chest: Reports cough and other Details: Positive hemoptysis ; Denies dyspnea Gastrointestinal Gastrointestinal: Denies abdominal pain, diarrhea, nausea or vomiting Genitourinary Genitourinary ED: Denies dysuria Musculoskeletal Musculoskeletal: Denies myalgias Integumentary Denies rash Neurologic Neurologic: Denies headache(s) Hematologic/Lymphatic Hematologic/Lymphatic: Denies easy bleeding or easy bruising EXAM Physical Exam Const Vital Signs: 11/13/21 05:39 11/13/21 05:41 11/13/21 06:32 Temperature 97.5 F L Temperature Source Temporal Pulse Rate 86 99 Respiratory Rate 18 20 H Respiratory Effort Normal Non-Labored Respiratory Depth Normal Respiratory Pattern Normal Blood Pressure 137/97 H 152/96 H Blood Pressure Mean 110 Pulse Ox 99 96 Oxygen Delivery Method Room Air Room Air Positive well nourished and well developed General Appearance ED: well developed HEENT Reports moist mucous membranes HEENT Narrative: No dried blood or active bleeding noted in the nasopharynx no blood noted within the posterior pharynx either Eyes PERRL and EOMs intact bilaterally Neck supple Neck Narrative: No crepitance noted Resp normal respiratory effort and clear to auscultation bilaterally Resp Narrative: Breath sounds are slight diminished throughout but overall clear to auscultation Cardio regular rate and regular rhythm Extremity normal to inspection Neuro oriented x3 and CN's II-XII intact bilaterally Sensorium / Orientation: alert Motor Exam: strength 5/5 throughout Psych mental status grossly normal Skin no rashes or lesions noted MDM MDM MDM Narrative Medical decision making narrative: Patient presented to the ER in no acute respi ratory distress and was satting 99% on room air and afebrile. Hemoptysis could be secondary to bronchitis or pneumonia and with her report of a lung mass I did feel necessary to start with the least a chest x-ray. Chest x-ray shows the lung mass to be stable but there is hazy opacity in the left lung concerning for early pneumonia. This would correlate with the patient's fatigue as well as cough and hemoptysis. At this time as she is not in any type of respiratory distress or showing changes concerning for septicemia I do not feel there is need for further work-up or CTA. Patient was placed on antibiotics secondary to this and is otherwise safe for discharge. Radiography Diagnostic Testing: Clinical Impression(s) from Imaging Studies Chest X-Ray 11/13/21 05:39 IMPRESSION: Hazy airspace disease left base, possibly infiltrate or atelectasis. No cavitary lesion or bronchiectasis Stable calcification and left hilar enlargement. Electronically Signed: Mariella Yang MD at 6:07 EST Reading Location ID and State: , Service support , Discharge Plan Triage Chief Complaint: Cough ED Provider: Jose Goyal Dx/Rx/DC Orders Clinical Impression: Pneumonia, Cough with hemoptysis Instructions: ED Pneumonia (Adult) Prescriptions: New doxycycline monohydrate 100 mg capsule 100 mg PO BID Qty: 20 RF: 0 promethazine-codeine 6.25-10 mg/5 mL syrup 5 ml PO Q6H PRN (Reason: cough) 7 Days Qty: 140 RF: 0 Stand Alone Forms: ED Work / School Excuse Primary Care Provider: Karmen Cardona Referrals: Karmen Cardona, PA [Primary Care Provider] - Activity Restrictions/Additional Instructions: Please take the medication as directed to help resolve your symptoms but if they persist despite treatment please return to the ER for further evaluation Disposition Disposition: Home, Self Care Discharge Date/Time: 11/13/21 06:34
[2021-11-13] MEDS: Doxycycline 100 MG CAPSULE PO (06:31)
[2021-11-13 06:32] VITALS: BP 152/96; PULSE 99; RESP 20; O2SAT 96
== END 2021-11-13 06:34 | disposition home or self-care (01) ==
PROVIDERS: Emergency Provider Emergency Medicine; PCP Physician Assistant; Visit Provider Emergency Medicine
DX: J18.9 Pneumonia, unspecified organism (principal); R53.83 Other fatigue; R04.2 Hemoptysis
CPT/HCPCS: 71046; 99283

== ENCOUNTER 2021-11-18 00:21 | Observation (INO) | payer OTHER, SELFPAY ==
[2021-11-18] VITALS (8 sets, daily range): BP systolic 112–148; BP diastolic 54–96; PULSE 77–106; RESP 16–18; TEMP 36.3–37.1; O2SAT 97–100; BMI 29.1; BMI 24.6
--- NOTE | 2021-11-18 | SPU_PTH ---
PATIENT: ED JI LOC: [facility] U#:[id number] AGE/SX: 41/F ROOM: [facility] RE11/18/[address]: Dr. Amanda Fairbanks MD : 1980 BED: 1 DIS: 11/20/2021 SPEC #: [id number] RECD: 11/19/21 09:08 STATUS: LOY SIMON #: [id number] VINCENT: 11/18/21 00:[address]: Amanda Fairbanks DEPT: CYTOLOGY RECD BY: Radames Cruz ENTERED: 11/19/21 09:08 SP TYPE: Sputum Cy OTHR DR: MD Dr. Adrien Mckinney, DO MD Marilyn Tierney, SKI MAKER-C JOE Draper Tissues: Sputum Procedures: Pap Stain (control) Special Stain Group II Special Stain Group I AFB Stain (control) Cytospin Fluid HEADER OPERATION: Not noted PRE-OP DIAGNOSIS: Hemoptysis TISSUE SUBMITTED: Sputum for cytology DIAGNOSIS CYTOLOGY Sputum for cytology (smears): Negative for malignant cells. See comment. AM:buck 11/19/2021 COMMENT There is no definite evidence of acid fast bacilli. AFB stain with matched control is appropriate. Focal inconclusive staining is noted. Cultures are pending and will be reported separately. CYTOLOGY STUDY Slides are reviewed. CYTOLOGY GROSS Received is <1 ml of cloudy, slightly white, thick fluid labeled with the patient's name and and designated per the requisition as sputum. Submitted for cytology preparation. / buck 11/18/2021 TC:2 CPT: 97934, 17228
--- NOTE | 2021-11-18 00:33 | CT_ITS ---
HISTORY: Hemoptysis, diagnosed 4 days ago with pneumonia. Started on antibiotics, not getting better, increased cough with blood. 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 EXAMINATION: CTA Chest W/ Contrast Injection (and W/O Contrast Images if performed) TECHNIQUE: Helically acquired images were obtained of the chest following IV contrast as per pulmonary angiogram protocol with MIP and MPR reconstructions. A radiation dose optimization technique was used for this scan. IV Contrast dosage and agent: 75mL [id number] COMPARISON: CTA chest from 04/09/21 FINDINGS: No acute pulmonary arterial filling defects identified. 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 Mass is grossly stable in size, 4 cm diameter. There are other small chronic, calcified left hilar and infracarinal lymph nodes. Major airways are patent. Again noted are several small scattered nodular and scarlike opacities within left lower lobe. Stable ovoid 2 cm diameter nodular lesion within posterolateral left lung base abutting the pleural surface. Interval development of multifocal hazy ground glass alveolar opacities within left upper lobe and left lower lobe. No acute air space disease appreciated within right lung. No pneumothorax or pleural effusion. No thoracic aortic aneurysm or dissection. Great vessels are patent. Heart normal size. No significant pericardial effusion. Unremarkable esophagus. Multiple calcified splenic granulomas again noted. Stable ovoid, heterogeneous low-attenuation lesion within inferior spleen, measuring almost 4 cm diameter. Stable separate small 1.5 cm low-attenuation lesion within the anterolateral spleen. No acute fracture or suspicious osseous lesion. CT/CTA Chest W/WO Contrast IMPRESSION: 1. Multifocal groundglass airspace disease now present within left lung suggesting infectious process or nonspecific pneumonitis. Asymmetric left lung alveolar hemorrhage also in the differential. 2. Sequela of previous intrathoracic and upper abdominal granulomatous infection. 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 There also stable nodular lesions and scarlike opacities within the left lower lobe. Previous supports document biopsy of left basilar lung nodule, with history indicating benign granulomatous process. Left perihilar mass also likely granulomatous etiology. Considering history of hemoptysis, consider pulmonology consultation and possible follow-up bronchoscopy, to evaluate integrity of left lung bronchi and any possible erosive or inflammatory changes. 3. Stable appearance of heterogeneous low-attenuation splenic mass and separate smaller low-attenuation splenic lesion. Differential includes splenic hemangiomas, hamartomas and/or small splenic cyst. Splenic neoplasm not entirely excluded. Follow-up as clinically warranted. Individualized dose optimization techniques were used for this CT. at 0152 Reported and signed by: Clinton Santacruz MD Electronically Signed: Clinton Santacruz MD at 1:51 EST ,
[2021-11-18] MEDS: 0.9% Normal Saline 1,000 ML 999 ML IV (00:41)
[2021-11-18 00:45] LABS: Absolute Lymphocyte Count 2.87 X10^3/uL (0.83-4.51); Absolute Neutrophil Count 5.5 X10^3/uL (2.0-7.7); Basophil# 0.06 X10^3/uL; Basophil% 0.7 % (0-1); Eosinophil# 0.11 X10^3/uL; Eosinophils% 1.2 % (0-5); Hematocrit 40.9 % (37-47); Hemoglobin 13.7 g/dL (12.0-15.0); Lymphocyte # 2.87 X10^3/ul (0.83-4.51); Lymphocyte % 31.4 % (19-41); Mean Corp Hgb Conc 33.5 g/dL (32-36); Mean Corpuscular Hgb 28.8 pg (27.0-32.0); Mean Corpuscular Volume 86.1 fL (81-99); Mean Platelet Vol. 9.9 fl (6.2-12.0); Monocyte# 0.56 X10^3/uL; Monocyte% 6.1 % (0-10); NRBC Flagged by Analyzer 0 % (0-5); Neutrophil # 5.52 X10^3/uL (2.7-7.7); Neutrophil % 60.3 % (47-70); Platelet Count 309 K/mm3 (150-450); RBC Distribution Width CV 12.8 % (11.6-14.6); Red Blood Count 4.75 M/mm3 (4.2-5.4); White Blood Count 9.2 K/mm3 (4.4-11.0)
[2021-11-18] MEDS: Ketorolac 30 MG/ML Syringe IV (00:47)
[2021-11-18 00:59] LABS: Anion Gap 5 (5-15); BUN 10 mg/dL (7-18); BUN/Creat Ratio 10.6 RATIO (10-20); Calcium,Total 9.7 mg/dL (8.5-10.1); Chloride 106 mmol/L (98-107); Creatinine, Serum 0.94 mg/dL (0.55-1.02); EST Glomerular Filtration Rate 70 mL/min (>60); Est Glom Filt Rate - Afr Amer 84 mL/min (>60); Estimated Creatinine Clearance 65.81 ml/min; Glucose 75 mg/dL (74-106); Potassium 3.3 mmol/L (3.5-5.1); Sodium Level 140 mmol/L (136-145)
[2021-11-18 01:03] LABS: Prothrombin Time (Protime)PT. 12.4 SECONDS (11.7-14.9)
[2021-11-18 01:11] LABS: Lactic Acid 1.5 mmol/L (0.4-1.9)
[2021-11-18] MEDS: LORazepam 2 MG/ML Syringe 1 MG IV ×2 (01:32→02:50)
[2021-11-18] MEDS: DiphenhydrAMINE 50 MG/ML Syringe 25 MG IV (02:50)
--- NOTE | 2021-11-18 03:05 | EDS_ITS ---
HPI History of Present Illness Chief Complaint: Cough Narrative Narrative: Patient is a 41-year-old female with past medical history of granulomatous lung disease. She was seen on November 12 secondary to 1 day of hemoptysis. She denies any history of bleeding disorder or blood thinner use. At that time x-ray question developing left lower lobe pneumonia and she was placed on doxycycline. Patient states she was doing okay with this with only occasional streaks of blood in her sputum. However this evening she developed cyn hemoptysis once again and therefore presents for reevaluation. PFSH PFS Medical History Anxiety Kidney stones Migraines Pneumonia Home Medications doxycycline monohydrate 100 mg PO BID #20 cap 11/13/21 [Rx Last Taken Unknown] promethazine-codeine 5 ml PO Q6H PRN 7 Days #140 ml 11/13/21 [Rx Last Taken Unknown] Allergy/AdvReac Type Severity Reaction Status Date / Time No Known Allergies Allergy Verified 11/18/21 00:27 Family History Other Cancer Diabetes Heart disease Surgical History H/O: hysterectomy Social History Smoking Status: Never smoker ROS ROS ED Constitutional Constitutional ED: Denies chills or fever(s) ENT ENT ED: Reports rhinorrhea and sore throat Cardiovascular Cardiovascular: Denies chest pain Respiratory/Chest Respiratory/Chest: Reports cough, dyspnea, sputum and other Details: Positive hemoptysis Gastrointestinal Gastrointestinal: Denies abdominal pain, diarrhea, nausea or vomiting Genitourinary Genitourinary ED: Denies dysuria Musculoskeletal Musculoskeletal: Reports back pain; Denies myalgias Integumentary Denies rash Neurologic Neurologic: Denies headache(s) Hematologic/Lymphatic Hematologic/Lymphatic: Denies easy bleeding or easy bruising EXAM Physical Exam Const Vital Signs: 11/18/21 00:21 11/18/21 00:29 11/18/21 02:39 Temperature 97.7 F L Temperature Source Temporal Pulse Rate 106 H 77 Respiratory Rate 18 16 Respiratory Effort Labored Respiratory Depth Normal Respiratory Pattern Normal Blood Pressure 141/87 H 148/96 H Blood Pressure Mean 105 113 Pulse Ox 100 98 Oxygen Delivery Method Room Air Room Air Room Air Positive well nourished and well developed General Appearance ED: well developed HEENT Reports moist mucous membranes HEENT Narrative: No dried blood or active bleeding noted in the nasal mucosa or in the posterior pharynx. No oral lesions no airway edema or compromise Eyes PERRL and EOMs intact bilaterally Neck supple and no JVD Neck Narrative: No crepitance palpated Chest Wall Chest Narrative: There is reproducible pain of the left anterior lateral and posterior chest wall without bony deformity or crepitance Resp normal respiratory effort Resp Narrative: Breath sounds are slightly diminished throughout but greatest in the left lower lobe when compared to right and faint rhonchi at the site. No signs of respiratory distress Cardio regular rate and regular rhythm GI normal to inspection, nondistended, normoactive bowel sounds, non-tender, non- distended and no masses Auscultation: normoactive bowel sounds Palpation: soft Extremity normal to inspection Extremity Narrative: No asymmetric edema no pitting edema negative Homans' sign bilaterally Neuro oriented x3 and CN's II-XII intact bilaterally Sensorium / Orientation: alert Motor Exam: strength 5/5 throughout Psych mental status grossly normal Skin no rashes or lesions noted MDM MDM MDM Narrative Medical decision making narrative: Patient presented to the ER afebrile satting 90% on room air and in no acute respiratory distress. However she did have 3 episodes of cyn hemoptysis while here. With her recent x-ray question pneumonia but hemoptysis persisting I did elect to perform basic labs and a CTA. Labs revealed no clinically significant finding. CTA showed groundglass opacities now on the left upper and lower lobes concerning for infectious process or asymmetric alveolar hemorrhage. I discussed the case with her pilot plant research technician and he agrees that bronchoscopy is the next step. He states he would be willing to do this while patient is admitted in the hospital. He recommends as patient has been on doxycycline that should he be switched to Levaquin based on her persistent symptoms and worsening image. Patient was started on this antibiotic and will be admitted to the hospital service for further care. Lab Data Attestation: I reviewed the patient's lab results. Labs: Laboratory Results - last 24 hr 11/18/21 11/18/21 11/18/21 00:35 00:35 00:35 WBC 9.2 RBC 4.75 Hgb 13.7 Hct 40.9 MCV 86.1 MCH 28.8 MCHC 33.5 RDW Std Deviation 40.0 RDW Coeff of Keely 12.8 Plt Count 309 MPV 9.9 Immature Gran % (Auto) 0.300 Neut % (Auto) 60.3 Lymph % (Auto) 31.4 Kings % (Auto) 6.1 Eos % (Auto) 1.2 Baso % (Auto) 0.7 Absolute Neuts (auto) 5.5 Absolute Lymphs (auto) 2.87 Nucleated RBC % 0 PT 12.4 INR 1.0 APTT 33.0 Sodium 140 Potassium 3.3 L Chloride 106 Carbon Dioxide 29.0 Anion Gap 5 BUN 10 Creatinine 0.94 Estim Creat Clear Calc 65.81 Est GFR (MDRD) Af Amer 84 Est GFR (MDRD) Non-Af 70 BUN/Creatinine Ratio 10.6 Glucose 75 Lactic Acid Calcium 9.7 11/18/21 00:35 WBC RBC Hgb Hct MCV MCH MCHC RDW Std Deviation RDW Coeff of Keely Plt Count MPV Immature Gran % (Auto) Neut % (Auto) Lymph % (Auto) Kings % (Auto) Eos % (Auto) Baso % (Auto) Absolute Neuts (auto) Absolute Lymphs (auto) Nucleated RBC % PT INR APTT Sodium Potassium Chloride Carbon Dioxide Anion Gap BUN Creatinine Estim Creat Clear Calc Est GFR (MDRD) Af Amer Est GFR (MDRD) Non-Af BUN/Creatinine Ratio Glucose Lactic Acid 1.5 Calcium Radiography Diagnostic Testing: Clinical Impression(s) from Imaging Studies Chest CTA 11/18/21 00:33 IMPRESSION: 1. Multifocal groundglass airspace disease now present within left lung suggesting infectious process or nonspecific pneumonitis. Asymmetric left lung alveolar hemorrhage also in the differential. 2. Sequela of previous intrathoracic and upper abdominal granulomatous infection. 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 There also stable nodular lesions and scarlike opacities within the left lower lobe. Previous supports document biopsy of left basilar lung nodule, with history indicating benign granulomatous process. Left perihilar mass also likely granulomatous etiology. Considering history of hemoptysis, consider pulmonology consultation and possible follow-up bronchoscopy, to evaluate integrity of left lung bronchi and any possible erosive or inflammatory changes. 3. Stable appearance of heterogeneous low-attenuation splenic mass and separate smaller low-attenuation splenic lesion. Differential includes splenic hemangiomas, hamartomas and/or small splenic cyst. Splenic neoplasm not entirely excluded. Follow-up as clinically warranted. Individualized dose optimization techniques were used for this CT. at 0152 Reported and signed by: Clinton Santacruz MD Electronically Signed: Clinton Santacruz MD at 1:51 EST , Discharge Plan Triage Chief Complaint: Cough ED Provider: Jose Goyal Dx/Rx/DC Orders Clinical Impression: Cough with hemoptysis, Pneumonia Primary Care Provider: Karmen Cardona Disposition Disposition: Acute Care Hospital [facility]
[2021-11-18] MEDS: levoFLOXacin 750 MG Tablet PO (03:50)
--- NOTE | 2021-11-18 04:09 | PCM.HP.STD ---
HPI - General General Date of Admission: 11/18/21 HPI Narrative ED JI, is a 41 F who presents to the hospital with recurrent hemoptysis and cough. She was seen a few days ago for the same issue and was felt to have bronchitis. She was discharged home on doxycycline. Today a CTA of the chest was obtained which was negative for PE but it did show increasing groundglass opacities in the left lung, she does have a history of previous granulomatous disease. She states that she did have a biopsy a few months ago which was benign. She does also have a stable appearing heterogeneous low-attenuation splenic mass which will be followed as an outpatient. She denies any fevers but has felt chills. And she has noticed that her hemoptysis has gotten larger in volume she denies any lightheadedness or dizziness. She does feel like she has a panic attack whenever she does see the blood that she coughs up. FORMERLY [facility], [facility]–1983 Medical History Anxiety Kidney stones Migraines Pneumonia Home Medications doxycycline monohydrate 100 mg PO BID #20 cap 11/13/21 [Rx Last Taken Unknown] promethazine-codeine 5 ml PO Q6H PRN 7 Days #140 ml 11/13/21 [Rx Last Taken Unknown] Allergy/AdvReac Type Severity Reaction Status Date / Time No Known Allergies Allergy Verified 11/18/21 00:27 Family History Other Cancer Diabetes Heart disease Surgical History H/O: hysterectomy Social History Smoking Status: Never smoker ROS Constitutional Constitutional: Reports chills; Denies fatigue, fever(s) or malaise Eyes Eyes: Denies blurry vision ENT HEENT: Denies headache(s) or nasal discharge Cardiovascular Cardiovascular: Denies chest pain, dyspnea on exertion or syncope Respiratory/Chest Respiratory/Chest: Reports cough and hemoptysis; Denies shortness of breath at rest or shortness of breath with exertion Gastrointestinal Gastrointestinal: Denies constipation, diarrhea, nausea or vomiting Genitourinary Genitourinary: Denies dysuria Neurologic Neurologic: Denies focal weakness, numbness or tremor(s) Psychiatric Psychiatric: Denies anxiety or depression Vital Signs Vital Signs Vital Signs: 11/18/21 00:21 11/18/21 00:29 11/18/21 02:39 Temperature 97.7 F L Temperature Source Temporal Pulse Rate 106 H 77 Respiratory Rate 18 16 Respiratory Effort Labored Respiratory Depth Normal Respiratory Pattern Normal Blood Pressure 141/87 H 148/96 H Blood Pressure Mean 105 113 Pulse Ox 100 98 Oxygen Delivery Method Room Air Room Air Room Air 11/18/21 03:52 Temperature 97.4 F L Temperature Source Oral Pulse Rate 99 Respiratory Rate 17 Respiratory Effort Respiratory Depth Respiratory Pattern Blood Pressure 121/90 H Blood Pressure Mean 100 Pulse Ox 97 Oxygen Delivery Method Room Air Weight Weight: 164 lb 7.437 oz Body Mass Index (BMI) 29.1 Physical Exam Const alert, oriented x3 and no apparent distress General Appearance: cooperative HEENT normocephalic and moist oral mucous membranes Eyes PERRL, EOMs intact bilaterally and conjunctivae normal Neck supple and no JVD Resp normal respiratory effort, no retractions, no use of accessory muscles and clear to auscultation bilaterally Auscultation: Negative for crackles, rales, rhonchi or wheezes Cardio regular rate, regular rhythm, S1 normal heart sound, S2 normal heart sound and no murmurs GI soft to palpation, non-tender and non-distended; Negative for hepatosplenomegaly Extremity no clubbing, cyanosis or edema Skin no rashes or lesions noted Neuro no focal motor deficits and no sensory deficits noted Psych affect normal Appearance: appropriate Results Lab / Micro Data Result Diagrams: 11/18/21 00:35 11/18/21 00:35 Labs: Laboratory Results - last 24 hr 11/18/21 00:35: WBC 9.2, RBC 4.75, Hgb 13.7, Hct 40.9, MCV 86.1, MCH 28.8, MCHC 33.5, RDW Std Deviation 40.0, RDW Coeff of Keely 12.8, Plt Count 309, MPV 9.9, Immature Gran % (Auto) 0.300, Neut % (Auto) 60.3, Lymph % (Auto) 31.4, Carson % (Auto) 6.1, Eos % (Auto) 1.2, Baso % (Auto) 0.7, Absolute Neuts (auto) 5.5, Absolute Lymphs (auto) 2.87, Nucleated RBC % 0 11/18/21 00:35: PT 12.4, INR 1.0, APTT 33.0 11/18/21 00:35: Sodium 140, Potassium 3.3 L, Chloride 106, Carbon Dioxide 29.0, Anion Gap 5, BUN 10, Creatinine 0.94, Estim Creat Clear Calc 65.81, Est GFR (MDRD) Af Amer 84, Est GFR (MDRD) Non-Af 70, BUN/Creatinine Ratio 10.6, Glucose 75, Calcium 9.7 11/18/21 00:35: Lactic Acid 1.5 Micro: Microbiology 11/18/21 02:19 Nasal Secretion SARS-CoV-2 Antigen (Rapid) - Final Radiology Impression Chest CTA 11/18/21 00:33 IMPRESSION: 1. Multifocal groundglass airspace disease now present within left lung suggesting infectious process or nonspecific pneumonitis. Asymmetric left lung alveolar hemorrhage also in the differential. 2. Sequela of previous intrathoracic and upper abdominal granulomatous infection. 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 There also stable nodular lesions and scarlike opacities within the left lower lobe. Previous supports document biopsy of left basilar lung nodule, with history indicating benign granulomatous process. Left perihilar mass also likely granulomatous etiology. Considering history of hemoptysis, consider pulmonology consultation and possible follow-up bronchoscopy, to evaluate integrity of left lung bronchi and any possible erosive or inflammatory changes. 3. Stable appearance of heterogeneous low-attenuation splenic mass and separate smaller low-attenuation splenic lesion. Differential includes splenic hemangiomas, hamartomas and/or small splenic cyst. Splenic neoplasm not entirely excluded. Follow-up as clinically warranted. Individualized dose optimization techniques were used for this CT. at 0152 Reported and signed by: Clinton Santacruz MD Electronically Signed: Clinton Santacruz MD at 1:51 EST , Assessment & Plan Assessment/Plan (1) Pneumonia: (2) Cough with hemoptysis: PLAN: 1. Pneumonia/hemoptysis/splenic mass ?She does have a history of benign granulomatous disease on biopsy, will consult pulmonology for repeat bronchoscopy and biopsy. She is having an AFB swab done today, she will need two more done prior to her bronchoscopy ?She was discharged previously on doxycycline which we will broaden to Levaquin ?She has noticed some easy bruising in the past but nothing that she thought was significantly abnormal. She also noticed that her gums will bleed whenever she would brush her teeth but she says her dentist said that this was due to her gingivitis ?Hemoglobin is stable and she is not requiring any oxygen, she remains afebrile without a leukocytosis ?She will need repeat CT scans for monitoring of her splenic mass DVT: Ambulation Charges/Coding Visit Charges OBSV E&M: 31781 Initial observation care L2
[2021-11-18] MEDS: Acetaminophen 325 MG Tablet 650 MG PO ×3 (04:49→19:21)
[2021-11-18] MEDS: ALPRAZolam 0.5 MG Tablet PO ×4 (06:04→23:59)
[2021-11-18] MEDS: 0.9% Saline Lock 10 ML Syringe IV ×2 (08:45→11:30)
--- NOTE | 2021-11-18 09:07 | EX.PCM.CONCC ---
Assessment & Plan Assessment/Plan (1) Cough with hemoptysis: (2) Mediastinal mass: PLAN: RECOMMENDATIONS: 1. Obtain 3 AFB prior to bronchoscopy 2. Bronchoscopy tomorrow, tentatively 1:30 PM 3. Send vasculitis labs 4. N.p.o. at midnight 5. Okay to continue with antibiotics for now IMPRESSIONS: 1. Worsening hemoptysis with mediastinal mass Review of the CT scan shows that the mediastinal mass and left lower lobe nodule are grossly unchanged compared to previous. Patient does have a splenic mass, but this also appears stable. Patient's coagulation studies were within normal limits. Patient does have new groundglass opacity in the left upper lobe. 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 Anticipate evaluation with bronchoscopy tomorrow to rule out endobronchial component leading to hemoptysis. There is a possibility that the groundglass opacities in the left upper lobe are secondary to the bleeding itself. Other differential diagnosis would include a vasculitis, such as Claudia's granulomatosis, diffuse alveolar hemorrhage, retained foreign body, fungal infection or mediastinal erosion of previous granulomatous disease. Radiologic findings are consistent with previous granulomatous disease, so sarcoidosis would be a concern. Low clinical suspicion for acute pneumonia given lack of fever, leukocytosis or significant sputum, but continuation of antibiotics for 48 hours is reasonable as patient was treated with antibiotics previously and may have partially treated a pneumonia. Patient can likely be discharged tomorrow after bronchoscopy pending results. HPI Consult Data Date of Consult: 11/18/21 HPI Narrative HPI Narrative: ED JI is a 41 F, with past medical history listed below and well-known to me from the outpatient office, who presents to [facility] on 11/18/2021 secondary to hemoptysis. 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 Patient at that time had a chest x-ray and was initiated on doxycycline and cough syrup. Patient had reported some pleuritic type left-sided chest pain but thought this was normal with pneumonia. Last evening, patient had presented to the ER to work and subsequently had recurrent hemoptysis. Patient states that this was about enough to fill up the palm of my hand and described it as bright red to burgundy in color. Patient stated that it continued to get worse throughout her shift, so she asked to be evaluated. Patient has not had hemoptysis previously, but has been worked up for left mediastinal mass and left lower lobe nodule. Patient is not reporting any subjective fevers, but is having significant left-sided pleuritic chest pain. Given progression and hemoptysis, patient was admitted to the hospital for further evaluation. Patient states that she was back to her baseline until approximately 5 days ago. Patient states that she started to have some coughing at that time. Patient had not really reported significant shortness of breath, fever, chills or epistaxis. Patient did not report any lightheadedness or dizziness associated with her hemoptysis, but did feel that this made her very anxious. Patient has not reported any unintentional weight loss. Patient was last seen by myself in March 2021. At that time, patient had some pleuritic type chest pain and was found to have a splenic mass, pulmonary nodule and mediastinal adenopathy. Patient did not have a bronchoscopy at that time, but a CT-guided biopsy showed fibrotic tissue. Patient did not have hemoptysis at that time. Patient states that she has not had a mammogram, but does do self examinations and has not reported any nodules. Patient has not noticed any cyanosis. Patient states her chest pain is very similar to her previous presentation. Patient is not reporting any left-sided chest trauma. Review of systems otherwise negative from a constitutional, HEENT, respiratory, cardiovascular, GI, genitourinary, musculoskeletal, skin, neurologic, psychiatric and hematologic system unless stated above. [facility] Medical History Anxiety Kidney stones Migraines Pneumonia Home Medications doxycycline monohydrate 100 mg PO BID #20 cap 11/13/21 [Rx Last Taken Unknown] promethazine-codeine 5 ml PO Q6H PRN 7 Days #140 ml 11/13/21 [Rx Last Taken Unknown] Allergy/AdvReac Type Severity Reaction Status Date / Time No Known Allergies Allergy Verified 11/18/21 00:27 Family History Other Cancer Diabetes Heart disease Surgical History H/O: hysterectomy Social History Smoking Status: Never smoker ROS ROS Narrative See HPI Physical Exam Const alert, oriented x3 and no apparent distress General Appearance: cooperative HEENT normocephalic and moist oral mucous membranes Eyes PERRL, EOMs intact bilaterally and conjunctivae normal Neck supple and no JVD Chest Chest Narrative: Significant left parasternal chest pain along with reproducible pain in the left anterior axillary line Chest: localized rib tenderness with anteroposterior compression 8th rib; Negative for crepitus, pectus excavatum or pectus carninatum Resp normal respiratory effort, no retractions, no use of accessory muscles and clear to auscultation bilaterally Auscultation: Negative for crackles, rales, rhonchi or wheezes Cardio regular rate, regular rhythm, S1 normal heart sound, S2 normal heart sound and no murmurs GI soft to palpation, non-tender and non-distended; Negative for hepatosplenomegaly Extremity no clubbing, cyanosis or edema Skin no rashes or lesions noted Neuro no focal motor deficits and no sensory deficits noted Psych affect normal Appearance: appropriate Lab / Micro Data Result Diagrams: 11/18/21 00:35 11/18/21 00:35 Labs: Laboratory Results - last 24 hr 11/18/21 00:35: WBC 9.2, RBC 4.75, Hgb 13.7, Hct 40.9, MCV 86.1, MCH 28.8, MCHC 33.5, RDW Std Deviation 40.0, RDW Coeff of Keely 12.8, Plt Count 309, MPV 9.9, Immature Gran % (Auto) 0.300, Neut % (Auto) 60.3, Lymph % (Auto) 31.4, [place] % (Auto) 6.1, Eos % (Auto) 1.2, Baso % (Auto) 0.7, Absolute Neuts (auto) 5.5, Absolute Lymphs (auto) 2.87, Nucleated RBC % 0 11/18/21 00:35: PT 12.4, INR 1.0, APTT 33.0 11/18/21 00:35: Sodium 140, Potassium 3.3 L, Chloride 106, Carbon Dioxide 29.0, Anion Gap 5, BUN 10, Creatinine 0.94, Estim Creat Clear Calc 65.81, Est GFR (MDRD) Af Amer 84, Est GFR (MDRD) Non-Af 70, BUN/Creatinine Ratio 10.6, Glucose 75, Calcium 9.7 11/18/21 00:35: Lactic Acid 1.5 Micro: Microbiology 11/18/21 02:19 Nasal Secretion SARS-CoV-2 Antigen (Rapid) - Final Radiology Impression Chest CTA 11/18/21 00:33 IMPRESSION: 1. Multifocal groundglass airspace disease now present within left lung suggesting infectious process or nonspecific pneumonitis. Asymmetric left lung alveolar hemorrhage also in the differential. 2. Sequela of previous intrathoracic and upper abdominal granulomatous infection. 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 There also stable nodular lesions and scarlike opacities within the left lower lobe. Previous supports document biopsy of left basilar lung nodule, with history indicating benign granulomatous process. Left perihilar mass also likely granulomatous etiology. Considering history of hemoptysis, consider pulmonology consultation and possible follow-up bronchoscopy, to evaluate integrity of left lung bronchi and any possible erosive or inflammatory changes. 3. Stable appearance of heterogeneous low-attenuation splenic mass and separate smaller low-attenuation splenic lesion. Differential includes splenic hemangiomas, hamartomas and/or small splenic cyst. Splenic neoplasm not entirely excluded. Follow-up as clinically warranted. Individualized dose optimization techniques were used for this CT. at 0152 Reported and signed by: Clinton Santacruz MD Electronically Signed: Clinton Santacruz MD at 1:51 EST , Charges/Coding Visit Charges Inpatient E&M: 68385 Init Hosp L3
[2021-11-18] MEDS: Potassium Chloride Oral Tablet 20 MEQ 40 MEQ PO (10:17)
[2021-11-18] MEDS: LORazepam 1 MG Tablet PO (10:17)
[2021-11-18] MEDS: Ondansetron 4 MG/2 ML Vial IV (11:30)
--- NOTE | 2021-11-18 11:45 | NURSING ---
infection control called back- move patinet to airborne isolation until afb testing results
--- NOTE | 2021-11-18 14:15 | PCM.PN.HOSP ---
Documented by User: Jana Ribeiro NP, STUDENT MINISTRIES DIRECTOR-C 11/18/21 14:19 Subjective Subjective Patient seen and examined. Reports pain with taking a deep breath as well as left rib and shoulder pain. Reports anxiety. Denies fever, chills. Has not had productive cough this morning. Objective Data Objective Data Vital Signs: Vital Signs Temp Pulse Resp BP Pulse Ox 97.8 F 91 16 117/85 H 97 11/18/21 08:43 11/18/21 08:43 11/18/21 08:43 11/18/21 08:43 11/18/21 08:43 Oxygen Delivery Method Room Air Weight: 139 lb 1.787 oz Body Mass Index (BMI) 24.6 Intake & Output: Intake and Output for Last 24 Hours 11/16/21 11/17/21 11/18/21 23:59 23:59 23:59 Intake Total 1480 / 1480 Balance 1480 / 1480 Lab / Micro Data Result Diagrams: 11/18/21 00:35 11/18/21 00:35 Labs: Laboratory Results - last 24 hr 11/18/21 00:35: WBC 9.2, RBC 4.75, Hgb 13.7, Hct 40.9, MCV 86.1, MCH 28.8, MCHC 33.5, RDW Std Deviation 40.0, RDW Coeff of Keley 12.8, Plt Count 309, MPV 9.9, Immature Gran % (Auto) 0.300, Neut % (Auto) 60.3, Lymph % (Auto) 31.4, [place] % (Auto) 6.1, Eos % (Auto) 1.2, Baso % (Auto) 0.7, Absolute Neuts (auto) 5.5, Absolute Lymphs (auto) 2.87, Nucleated RBC % 0 11/18/21 00:35: PT 12.4, INR 1.0, APTT 33.0 11/18/21 00:35: Sodium 140, Potassium 3.3 L, Chloride 106, Carbon Dioxide 29.0, Anion Gap 5, BUN 10, Creatinine 0.94, Estim Creat Clear Calc 65.81, Est GFR (MDRD) Af Amer 84, Est GFR (MDRD) Non-Af 70, BUN/Creatinine Ratio 10.6, Glucose 75, Calcium 9.7 11/18/21 00:35: Lactic Acid 1.5 Micro: Microbiology 11/18/21 02:19 Nasal Secretion SARS-CoV-2 Antigen (Rapid) - Final Radiography Diagnostic Testing: Radiology Impression Chest CTA 11/18/21 00:33 IMPRESSION: 1. Multifocal groundglass airspace disease now present within left lung suggesting infectious process or nonspecific pneumonitis. Asymmetric left lung alveolar hemorrhage also in the differential. 2. Sequela of previous intrathoracic and upper abdominal granulomatous infection. 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 There also stable nodular lesions and scarlike opacities within the left lower lobe. Previous supports document biopsy of left basilar lung nodule, with history indicating benign granulomatous process. Left perihilar mass also likely granulomatous etiology. Considering history of hemoptysis, consider pulmonology consultation and possible follow-up bronchoscopy, to evaluate integrity of left lung bronchi and any possible erosive or inflammatory changes. 3. Stable appearance of heterogeneous low-attenuation splenic mass and separate smaller low-attenuation splenic lesion. Differential includes splenic hemangiomas, hamartomas and/or small splenic cyst. Splenic neoplasm not entirely excluded. Follow-up as clinically warranted. Individualized dose optimization techniques were used for this CT. at 0152 Reported and signed by: Clinton Santacruz MD Electronically Signed: Clinton Santacruz MD at 1:51 EST , Physical Exam Const alert, oriented x3 and no apparent distress Orientation / Consciousness: awake, oriented to person, oriented to place and oriented to time HEENT normocephalic and moist oral mucous membranes Eyes PERRL, EOMs intact bilaterally and conjunctivae normal Neck no lymphadenopathy Resp clear to auscultation bilaterally Auscultation: diminished lung sounds Cardio regular rate, regular rhythm and no murmurs Peripheral Pulses: pulses 2+ throughout GI normal to inspection, nondistended, normoactive bowel sounds, non-tender and non-distended Extremity normal to inspection Skin no rashes or lesions noted Lesions: no lesions Rashes: no rashes Trauma: no lacerations or abrasions Neuro CN's II-XII intact bilaterally, no focal motor deficits, no sensory deficits noted and deep tendon reflexes 2+ bilaterally Psych mental status grossly normal and affect normal Assessment & Plan Assessment/Plan (1) Cough with hemoptysis: PLAN: 1. Hemoptysis with mediastinal mass-pulmonary medicine following. AFB pending. Plan for bronchoscopy tomorrow. Antibiotics empirically. Afebrile. Oxygen stable on room air. DVT prophylaxis-low risk, not indicated This patient was seen by Jana Ribeiro NP-C under the supervision of Dr. Fairbanks. Documented by User: Dr. Amanda Fairbanks MD 11/18/21 16:52 Objective Data Lab / Micro Data Result Diagrams: 11/18/21 00:35 11/18/21 00:35 Charges/Coding Addendum Addendum: This patient was seen in conjunction with Jana Ribeiro NP. I have independently interviewed and examined the patient and reviewed pertinent historical, laboratory, and other data. I have reviewed her note and concur with her documentation 41-year-old female with past medical history of splenic mass, lung nodule, anxiety who comes in with progressive hematemesis. She has not had any more hematemesis since being admitted. She stated that her hematemesis is worse when she exerts herself. She was being worked up for splenic mass Physical Exam: Gen: Comfortable, not pale, not jaundiced CVS:HS I +II, regular, no murmurs RESP: Diminished at lung bases GI: BS present and normal, soft, nontender, no palpable organs EXT:No edema ASSESSMENT: 1. Acute hemoptysis 2. Mediastinal mass 3. Probable postobstructive pneumonia 4. Splenic mass 5. Anxiety disorder Plan: Continue on IV Levaquin Follow-up on pulmonology work-up Bronchoscopy planned in a.m. Ativan as needed Time spent coordinating patient's care, discussing with nursing, reassuring patient: 35 minutes Visit Charges Inpatient E&M: 93355 Subs Hosp L2
[2021-11-18] MEDS: oxyCODONE 5 MG Tablet PO ×3 (14:16→23:22)
[2021-11-19] VITALS (9 sets, daily range): BP systolic 107–126; BP diastolic 64–88; PULSE 85–144; RESP 14–28; TEMP 36.2–37.1; O2SAT 94–100; BMI 21.8
--- NOTE | 2021-11-19 | FLU_PTH ---
PATIENT: ED JI LOC: [facility] U#:[id number] AGE/SX: 41/F ROOM: [facility] RE11/18/[address]: Dr. Amanda Fairbanks MD : 1980 BED: 1 DIS: 11/20/2021 SPEC #: [id number] RECD: 11/19/21 14:52 STATUS: LOY REQ #: [id number] VINCENT: 11/19/21 00:[address]: Eriberto Billy DEPT: CYTOLOGY RECD BY: Anali Vazquez ENTERED: 11/20/21 10:20 SP TYPE: Fluid OTHR DR: MD Dr. Eriberto Craig MD Dr. Derek Brown DO MD Marilyn Tierney, GROUP HOME SUPERVISOR-C JOE Draper Tissues: Bronchus of left upper lobe Procedures: Special Stain Group II Surgery Specimen Level IV Cytospin Fluid Comments: @ Ordering doctor for SSII edited from to @ by ABAD at 11/20/21 1419 @ Ordering doctor for SUIV edited from to @ by ABAD at 11/20/21 1419 @ Ordering doctor for CYSPIN edited from to @ by ABAD at 11/20/21 1419 @ Submitting doctor edited from to @ by ABAD at 11/20/21 1419 HEADER OPERATION: Bronchoscopy with biopsies PRE-OP DIAGNOSIS: Hemoptysis TISSUE SUBMITTED: Left upper lobe lung fluid for cytology DIAGNOSIS CYTOLOGY Left upper lobe lung fluid for cytology (cytospin and cell block): Negative for malignant cells. AM:buck 11/23/2021 COMMENT Please refer to corresponding surgical biopsy [id number]. Case has been reviewed in consultation with Dr. Chaparro who concurs with the above diagnosis. IDC:[email or web address] CYTOLOGY STUDY Slides are reviewed. CYTOLOGY GROSS Received is 65 ml of red bloody, mucoidy fluid labeled with the patient's name and and designated per the requisition as left upper lobe lung. Submitted for cytology preparation including cell block. / buck 11/20/2021 TC:5 CPT: 61170, 54862
--- NOTE | 2021-11-19 | LUNG_PTH ---
PATIENT: ED JI LOC: [facility] U#:[id number] AGE/SX: 41/F ROOM: [facility] RE11/18/[address]: Dr. Amanda Fairbanks MD : 1980 BED: 1 DIS: 11/20/2021 SPEC #: [id number] RECD: 11/19/21 14:52 STATUS: LOY SIMON #: [id number] VINCENT: 11/19/21 00:[address]: Eriberto Billy DEPT: SURGICAL PATHOLOGY RECD BY: Anali Vazquez ENTERED: 11/20/21 09:02 SP TYPE: LUNG BX OTHR DR: MD Dr. Eriberto Craig MD Dr. Derek Brown DO MD Marilyn Tierney, PARQUETRY LAYER-JOE Cisneros Tissues: Lung, NOS Procedures: Special Stain Group I Surgery Specimen Level IV AFB Stain (control) GMS Stain (control) Comments: @ Ordering doctor for SUIV edited from to @ by MICAHOD at 11/20/21 1419 @ Submitting doctor edited from to @ by RGOOD at 11/20/21 1419 HEADER OPERATION: Bronchoscopy with biopsies PRE-OP DIAGNOSIS: Hemoptysis TISSUE SUBMITTED: Endobronchial biopsy left upper lobe lung MICROSCOPIC DIAGNOSIS Endobronchial tissue, biopsy: Sub-bronchial nonpolarizable material with associated histiocytes, fibrosis and mild chronic inflammation. No evidence of malignancy. Negative for acid-fast bacilli and fungal organisms. See comment. AM:buck 11/23/2021 COMMENT Immunohistochemistry ([id number]) supports the above diagnosis. AFB and GMS stains with matched controls were used in the evaluation of this case. Please refer to corresponding cytology [id number]. Case has been reviewed in consultation with Dr. Chaparro who concurs with the above diagnosis. IDC:ARIS MICROSCOPIC DESCRIPTION Slides are reviewed. GROSS DESCRIPTION Received in fixative is one container labeled with the patient's name and designated endobronchial biopsy. The specimen consists of multiple irregular fragments of light guillaume soft tissue that in aggregate measure 0.6 x 0.6 x 0.1 cm. The specimen is totally submitted in one cassette. / ARIS:buck 11/20/2021 TC:3 CPT: 50912, 40960 x2
--- NOTE | 2021-11-19 | IMM_PTH ---
PATIENT: ED JI LOC: [facility] U#:[id number] AGE/SX: 41/F ROOM: [facility] RE11/18/[address]: Dr. Amanda Fairbanks MD : 1980 BED: 1 DIS: 11/20/2021 SPEC #: [id number] RECD: 11/23/21 13:48 STATUS: LOY REQ #: [id number] VINCENT: 11/19/21 00:[address]: Eriberto Billy DEPT: IMMUNOHISTOCHEMISTRY RECD BY: Billie Jeong ENTERED: 11/23/21 13:49 SP TYPE: IMMUNO OTHR DR: MD Dr. Adrien Craig, MD Marilyn Contreras Dr[address] MANAGER DISASTER RECOVERY-JOE Cisneros Tissues: Left upper lobe of lung, NOS Procedures: MACRO (add) Vimentin (add) Pankeratin (initial) PHYSICIAN & [address] [address] SPECIMEN INFORMATION: Tissue Source: Left upper lobe lung, endobronchial biopsy Clinical Info: Hemoptysis Specimen Number: [id number] CPT code: 64901, 26273 x2 METHODOLOGY: Deparaffinized sections of prefer/formalin-fixed tissue or PAP/DQ stained slides are incubated with monoclonal/polyclonal antibodies/oligonucleotide probes. Localization is made via biotin free immunoperoxidase method. Appropriate controls are performed and reacted as expected. Results on target cell population are indicated in the following table: RESULTS: ANTIBODY / CLONE RESULT AE1-3 (AE1/AE3/PCK26) positive Vimentin (V9) positive Macro (HAM-56) positive These tests were developed and their performance characteristics determined by [facility]. They may not have been cleared or approved by the U.S. Food and Drug Administration. The FDA has determined that such clearance or approval is not necessary. The above immunohistochemical/dualISH markers are ordered and reviewed by the Pathologist. INTERPRETATION: Left upper lobe lung, endobronchial biopsy: Benign histiocytes present. AM:buck 11/24/2021 Case has been reviewed in consultation with Dr. Chaparro who concurs with the above diagnosis. IDC:[email or web address]
[2021-11-19] MEDS: oxyCODONE 5 MG Tablet PO ×4 (04:19→21:10)
[2021-11-19] MEDS: Acetaminophen 325 MG Tablet 650 MG PO ×2 (04:20→23:59)
[2021-11-19] MEDS: ALPRAZolam 0.5 MG Tablet PO ×2 (04:22→19:42)
[2021-11-19] MEDS: levoFLOXacin 750 MG Tablet PO (04:31)
[2021-11-19 04:47] LABS: Acid Fast Stain SEE PATHOLOGY REPORT; Cytology, Body Fluid / CSF SEE PATHOLOGY REPORT
[2021-11-19 06:20] LABS: Absolute Lymphocyte Count 2.74 X10^3/uL (0.83-4.51); Absolute Neutrophil Count 3.3 X10^3/uL (2.0-7.7); Basophil# 0.03 X10^3/uL; Basophil% 0.4 % (0-1); Eosinophil# 0.23 X10^3/uL; Eosinophils% 3.3 % (0-5); Hematocrit 34.3 % (37-47); Hemoglobin 11.5 g/dL (12.0-15.0); Lymphocyte # 2.74 X10^3/ul (0.83-4.51); Lymphocyte % 39.3 % (19-41); Mean Corp Hgb Conc 33.5 g/dL (32-36); Mean Corpuscular Hgb 29.2 pg (27.0-32.0); Mean Corpuscular Volume 87.1 fL (81-99); Mean Platelet Vol. 9.8 fl (6.2-12.0); Monocyte# 0.66 X10^3/uL; Monocyte% 9.5 % (0-10); NRBC Flagged by Analyzer 0 % (0-5); Neutrophil # 3.29 X10^3/uL (2.7-7.7); Neutrophil % 47.2 % (47-70); Platelet Count 249 K/mm3 (150-450); RBC Distribution Width SD 40.9 fl (35.1-43.9); Red Blood Count 3.94 M/mm3 (4.2-5.4)
[2021-11-19 06:44] LABS: Anion Gap 2 (5-15); BUN 10 mg/dL (7-18); BUN/Creat Ratio 12.1 RATIO (10-20); Calcium,Total 8.4 mg/dL (8.5-10.1); Chloride 109 mmol/L (98-107); Creatinine, Serum 0.83 mg/dL (0.55-1.02); EST Glomerular Filtration Rate 81 mL/min (>60); Est Glom Filt Rate - Afr Amer 98 mL/min (>60); Estimated Creatinine Clearance 74.53 ml/min; Glucose 107 mg/dL (74-106); Potassium 3.8 mmol/L (3.5-5.1); Rheumatoid Factor < 10.0 IU/mL (<15); Sodium Level 139 mmol/L (136-145)
[2021-11-19 09:40] LABS: Erythrocyte Sedimentation Rate 18 mm/hr (0-30)
--- NOTE | 2021-11-19 11:05 | PCM.PN.INT ---
Assessment & Plan Assessment/Plan (1) Cough with hemoptysis: (2) Mediastinal mass: PLAN: RECOMMENDATIONS: 1. Await results of bronchoscopy 2. Possible discharge following bronchoscopy findings 3. Follow-up on labs as an outpatient 4. Complete 7 days of Levaquin 5. Follow-up with nurse practitioner in 2 weeks following discharge IMPRESSIONS: 1. Worsening hemoptysis with mediastinal mass Review of the CT scan shows that the mediastinal mass and left lower lobe nodule are grossly unchanged compared to previous. Patient does have a splenic mass, but this also appears stable. Patient's coagulation studies were within normal limits. Patient does have new groundglass opacity in the left upper lobe. Patient has had resolution of hemoptysis over the last 24 hours with antibiotics. Can treat for total of 7 days, but low clinical suspicion for true pneumonia given the lack of leukocytosis, fever and clinical presentation. Patient does have an elevated CRP. Will obtain a bronchoscopy to make sure there are no intraluminal obstructions. Vasculitis labs are currently pending. Patient likely will be able to be discharged following bronchoscopy with close follow-up as an outpatient. Subjective Subjective Patient did okay overnight. Patient states that the hemoptysis has resolved. Patient is still having significant parasternal and left axillary line pain. Patient still has a cough, but denies any nausea or vomiting. Objective Data Objective Data Vital Signs: Vital Signs Temp Pulse Resp BP Pulse Ox 36.9 C 88 16 109/77 98 11/19/21 07:54 11/19/21 07:54 11/19/21 07:54 11/19/21 07:54 11/19/21 07:54 Oxygen Delivery Method Room Air Weight: 63.1 kg Body Mass Index (BMI) 24.6 Intake & Output: Intake and Output for Last 24 Hours 11/17/21 11/18/21 11/19/21 23:59 23:59 23:59 Intake Total 1940 / 2280 700 / 700 Balance 1940 / 2280 700 / 700 Lab / Micro Data Result Diagrams: 11/19/21 06:10 11/19/21 06:10 Labs: Laboratory Results - last 24 hr 11/19/21 06:10: WBC 7.0, RBC 3.94 L, Hgb 11.5 L, Hct 34.3 L, MCV 87.1, MCH 29.2, MCHC 33.5, RDW Std Deviation 40.9, RDW Coeff of Keely 13.0, Plt Count 249, MPV 9.8, Immature Gran % (Auto) 0.300, Neut % (Auto) 47.2, Lymph % (Auto) 39.3, [place] % (Auto) 9.5, Eos % (Auto) 3.3, Baso % (Auto) 0.4, Absolute Neuts (auto) 3.3, Absolute Lymphs (auto) 2.74, Nucleated RBC % 0, ESR 18 11/19/21 06:10: Sodium 139, Potassium 3.8, Chloride 109 H, Carbon Dioxide 28.0, Anion Gap 2 L, BUN 10, Creatinine 0.83, Estim Creat Clear Calc 74.53, Est GFR (MDRD) Af Amer 98, Est GFR (MDRD) Non-Af 81, BUN/Creatinine Ratio 12.1, Glucose 107 H, Calcium 8.4 L, C-React Prot Ext Range 18.30 H, Rheumatoid Factor < 10.0 Micro: Microbiology 11/18/21 14:14 Sputum, Expectorated/Coughed Gram Stain - Preliminary 11/18/21 02:19 Nasal Secretion SARS-CoV-2 Antigen (Rapid) - Final Physical Exam Const alert, oriented x3 and no apparent distress General Appearance: cooperative HEENT normocephalic and moist oral mucous membranes Eyes PERRL, EOMs intact bilaterally and conjunctivae normal Neck supple and no JVD Chest Chest Narrative: Significant left parasternal chest pain along with reproducible pain in the left anterior axillary line Chest: localized rib tenderness with anteroposterior compression 8th rib; Negative for crepitus, pectus excavatum or pectus carninatum Resp normal respiratory effort, no retractions, no use of accessory muscles and clear to auscultation bilaterally Auscultation: Negative for crackles, rales, rhonchi or wheezes Cardio regular rate, regular rhythm, S1 normal heart sound, S2 normal heart sound and no murmurs GI soft to palpation, non-tender and non-distended; Negative for hepatosplenomegaly Extremity no clubbing, cyanosis or edema Skin no rashes or lesions noted Neuro no focal motor deficits and no sensory deficits noted Psych affect normal Appearance: appropriate Charges/Coding Visit Charges Inpatient E&M: 19928 Subs Hosp L2
[2021-11-19] MEDS: Lactated Ringers 1,000 ML 15 ML IV (12:40)
[2021-11-19] MEDS: Lidocaine 2% (5ml sdv) 5 ML VIAL.MPF (14:00)
[2021-11-19] MEDS: Lidocaine 2% Jelly 1 APPLIC Tube (14:00)
[2021-11-19 14:53] LABS: Cytology, Washings SEE PATHOLOGY REPORT
--- NOTE | 2021-11-19 15:35 | OP.BRONCH_ITS ---
Patient Name: Nichole Campa Procedure Date: 11/19/2021 1:42 PM Date of : 1980 Age: 41 Procedure: Bronchoscopy Indications: Hemoptysis with abnormal CXR, Hilar lymphadenopathy of the left side, Shortness of breath Providers: Eriberto Billy MD Medicines: Lidocaine 4% Nebulizer 2.5 mL, Lidocaine 2% applied to cords 3 mL, Lidocaine 2% applied to the tracheobronchial tree 6 mL, See the Anesthesia note for documentation of the administered medications Complications: No immediate complications Procedure: Pre-Anesthesia Assessment: - Prior to the procedure, a History and Physical was performed, and patient medications and allergies were reviewed. The patient's tolerance of previous anesthesia was also reviewed. The risks and benefits of the procedure and the sedation options and risks were discussed with the patient. All questions were answered, and informed consent was obtained. Prior Anticoagulants: The patient has taken no previous anticoagulant or antiplatelet agents. ASA Grade Assessment: III - A patient with severe systemic disease. After reviewing the risks and benefits, the patient was deemed in satisfactory condition to undergo the procedure. After I obtained informed consent, the scope was passed under direct vision. Throughout the procedure, the patient's blood pressure, pulse, and oxygen saturations were monitored continuously. The ultrasound bronchoscope was introduced through the mouth and advanced to the tracheobronchial tree of both lungs. The procedure was accomplished without difficulty. The patient tolerated the procedure well. The procedure was accomplished with moderate difficulty due to excessive bleeding and the patient's coughing. Successful completion of the procedure was aided by controlling the bleeding, adding supplemental oxygen and decreasing the dose of sedation medication. Findings: Trachea/Shanae Abnormalities: A small non-obstructing friable (with contact bleeding) and vascular lesion was found in the trachea. Telangiectasia was found throughout the tracheobronchial tree. Right Lung Abnormalities: Telangiectasia was found in the right upper lobe. Old blood was found in the right upper lobe and in the right middle lobe. The bleeding site was not identified. It was not obstructing the airway. Left Lung Abnormalities: An area of acutely inflamed mucosa was found in the left upper lobe. An area of friable mucosa was found in the left upper lobe. Left main shanae splayed with fribale tissue. Moderate bleeding throughout remainder of the procedure. Washings were obtained in the left upper lobe and sent for cell count, bacterial culture, viral smears & culture, and fungal & AFB analysis and cytology and bacterial, AFB and fungal analysis. The return was bloody. Multiple specimens were obtained, and each sent for analysis. BAL was performed in the left upper lobe of the lung and sent for cell count, bacterial culture, viral smears & culture, and fungal & AFB analysis and cytology and routine cytology. 60 mL of fluid were instilled. 20 mL were returned. The return was bloody. There were no mucoid plugs in the return fluid. Endobronchial biopsies were performed in the left upper lobe using forceps and sent for histopathology examination. 7 were obtained. Estimated blood loss: 50 mL. The patient's condition was unchanged after the intervention. Impression: - Hemoptysis with abnormal CXR - Hilar lymphadenopathy of the left side - Shortness of breath - A lesion was found in the trachea. - Telangiectasias were found throughout the tracheobronchial tree. - Telangiectasias were found in the right upper lobe. - Blood was present in the right upper lobe and in the right middle lobe. - Acute mucosal inflammation was visualized in the left upper lobe. - Friable mucosa was found in the left upper lobe. - Washings were obtained. - Bronchoalveolar lavage was performed. - An endobronchial biopsy was performed. - The patient's condition was unchanged after the intervention. Recommendation: - Discharge patient to home (ambulatory). - Await BAL, biopsy, cytology and washing results. - Patient has a contact number available for emergencies. The signs and symptoms of potential delayed complications were discussed with the patient. Return to normal activities tomorrow. Written discharge instructions were provided to the patient. Procedure Code(s): --- Professional --- 39695, Bronchoscopy, rigid or flexible, including fluoroscopic guidance, when performed; with bronchial or endobronchial biopsy(s), single or multiple sites 42274, Bronchoscopy, rigid or flexible, including fluoroscopic guidance, when performed; with bronchial alveolar lavage 40266, Bronchoscopy, rigid or flexible, including fluoroscopic guidance, when performed; with bronchial alveolar lavage 38863, Bronchoscopy, rigid or flexible, including fluoroscopic guidance, when performed; with bronchial alveolar lavage Diagnosis Code(s): --- Professional --- R04.2, Hemoptysis R59.0, Localized enlarged lymph nodes R06.02, Shortness of breath J39.8, Other specified diseases of upper respiratory tract CPT copyright 2017 [employer]. All rights reserved. The codes documented in this report are preliminary and upon topstitcher zigzag review may be revised to meet current compliance requirements. MD Eriberto Henson MD 11/19/2021 3:33:42 PM This report has been signed electronically. Number of Addenda: 0 Note Initiated On: 11/19/2021 1:42 PM
--- NOTE | 2021-11-19 16:17 | PN.HOSP_ITS ---
Documented by User: Ricky DIAZ 11/19/21 16:30 Subjective Subjective Patient is a 41-year-old female comfortably resting in bed, alert and orient x3. Patient reports feeling drowsy and in pain after bronchoscopy but does not appear in acute distress. Objective Data Objective Data Vital Signs: Vital Signs Temp Pulse Resp BP Pulse Ox 98.2 F 105 H 18 107/82 H 99 11/19/21 15:05 11/19/21 15:05 11/19/21 15:05 11/19/21 15:05 11/19/21 15:05 Oxygen Delivery Method Room Air Weight: 139 lb 1.787 oz Body Mass Index (BMI) 21.8 Intake & Output: Intake and Output for Last 24 Hours 11/17/21 11/18/21 11/19/21 23:59 23:59 23:59 Intake Total 1940 / 2280 700 / 700 Balance 1940 / 2280 700 / 700 Lab / Micro Data Result Diagrams: 11/19/21 06:10 11/19/21 06:10 Labs: Laboratory Results - last 24 hr 11/19/21 06:10: WBC 7.0, RBC 3.94 L, Hgb 11.5 L, Hct 34.3 L, MCV 87.1, MCH 29.2, MCHC 33.5, RDW Std Deviation 40.9, RDW Coeff of Keely 13.0, Plt Count 249, MPV 9 .8, Immature Gran % (Auto) 0.300, Neut % (Auto) 47.2, Lymph % (Auto) 39.3, [place] % (Auto) 9.5, Eos % (Auto) 3.3, Baso % (Auto) 0.4, Absolute Neuts (auto) 3.3, Absolute Lymphs (auto) 2.74, Nucleated RBC % 0, ESR 18 11/19/21 06:10: Sodium 139, Potassium 3.8, Chloride 109 H, Carbon Dioxide 28.0, Anion Gap 2 L, BUN 10, Creatinine 0.83, Estim Creat Clear Calc 74.53, Est GFR (MDRD) Af Amer 98, Est GFR (MDRD) Non-Af 81, BUN/Creatinine Ratio 12.1, Glucose 107 H, Calcium 8.4 L, C-React Prot Ext Range 18.30 H, Rheumatoid Factor < 10.0 Micro: Microbiology 11/18/21 14:14 Sputum, Expectorated/Coughed Gram Stain - Final 11/18/21 14:14 Sputum, Expectorated/Coughed Respiratory Culture - Preliminar y Appears to be normal respiratory reji. Further studies to follow. 11/18/21 02:19 Nasal Secretion SARS-CoV-2 Antigen (Rapid) - Final Physical Exam Const alert, oriented x3 and no apparent distress HEENT head/scalp atraumatic and moist oral mucous membranes Head and Scalp: normocephalic Eyes PERRL, EOMs intact bilaterally and conjunctivae normal Neck no lymphadenopathy, supple and no JVD Resp normal respiratory effort, no retractions and no use of accessory muscles Cardio regular rate, regular rhythm and no JVD GI normal to inspection, nondistended, normoactive bowel sounds Extremity normal to inspection Skin no rashes or lesions noted Neuro CN's II-XII intact bilaterally Psych affect normal Assessment & Plan Assessment/Plan (1) Cough with hemoptysis: PLAN: Day 1 Discharge planning: Current plan is for patient to discharge home when medically ready 1)Hemoptysis with mediastinal mass Patient underwent bronchoscopy today, multiple telangiectasias and inflammation noted in the right and left lung, biopsy performed, await results. Continue empiric antibiotics for now and plan is for discharge when ready. DVT prophylaxis - low risk, not indicated Patient seen by Ricyk Joiner PA-C, under the supervision of Dr. Fairbanks. Time spent on patient care: 10 minutes. Documented by User: Dr. Amanda Fairbanks MD 11/19/21 17:14 Objective Data Lab / Micro Data Result Diagrams: 11/19/21 06:10 11/19/21 06:10 Charges/Coding Addendum Addendum: This patient was seen in conjunction with JOE Porter. I have independently interviewed and examined the patient and reviewed pertinent histor ical, laboratory, and other data. Please refer to JOE Porter's note for his patient's presentation, findings, and recommendations. I have reviewed and his note and concur with his documentation Patient was seen and examined. She is going for bronchoscopy. Stool complains of anxiety. Physical Exam: Gen: Comfortable, not pale, not jaundiced CVS:HS I +II, regular, no murmurs RESP: Diminished at lung bases GI: BS present and normal, soft, nontender, no palpable organs EXT:No edema ASSESSMENT: 1. Acute hemoptysis 2. Mediastinal mass 3. Probable postobstructive pneumonia 4. Splenic mass 5. Anxiety disorder Plan: Continue on IV Levaquin Follow-up on pulmonology work-up Bronchoscopy planned today Time spent coordinating patient's care, discussing with nursing, discussing with pulmonology: 20minutes Visit Charges Inpatient E&M: 94301 Subs Hosp L2
[2021-11-19 17:47] LABS: Color/Body Fluid RED; Source- Body Fluid BRONCHIAL LAVAGE
[2021-11-19 17:48] LABS: Red Cell Count/Body Fluid 8800 /mm3
[2021-11-19 17:49] LABS: Appearance/Body Fluid TURBID
[2021-11-19 17:50] LABS: Appearance/Body Fluid TURBID; Color/Body Fluid RED; Source- Body Fluid BRONCHIAL LAVAGE; White Blood Count/Body Fluid 9 /mm3
[2021-11-19 17:51] LABS: Red Cell Count/Body Fluid 28000 /mm3; White Blood Count/Body Fluid 6 /mm3
[2021-11-19 18:03] LABS: Body Fluid QC Type(s) BF1Q
[2021-11-19 18:18] LABS: Lymphocytes 15 %; Monocytes 8 %; Neutrophil (Segs) 77 %
[2021-11-19 18:23] LABS: Lymphocytes 15 %; Macrophages 3 %; Monocytes 3 %; Neutrophil (Segs) 79 %
[2021-11-20] MEDS: ALPRAZolam 0.5 MG Tablet PO ×2 (00:59→09:48)
[2021-11-20 01:00] VITALS: BP 111/75; PULSE 93; RESP 16; TEMP 36.6; O2SAT 98
[2021-11-20] MEDS: oxyCODONE 5 MG Tablet PO ×3 (01:00→09:48)
[2021-11-20] MEDS: Ondansetron 4 MG/2 ML Vial IV (01:00)
[2021-11-20 05:00] VITALS: BP 111/76; PULSE 81; RESP 14; TEMP 36.5; O2SAT 97
[2021-11-20] MEDS: levoFLOXacin 750 MG Tablet PO (06:12)
[2021-11-20] MEDS: Acetaminophen 325 MG Tablet 650 MG PO (06:12)
[2021-11-20 06:32] LABS: Absolute Lymphocyte Count 0.83 X10^3/uL (0.83-4.51); Absolute Neutrophil Count 11.3 X10^3/uL (2.0-7.7); Basophil# 0.02 X10^3/uL; Basophil% 0.2 % (0-1); Hematocrit 35.2 % (37-47); Hemoglobin 11.7 g/dL (12.0-15.0); Lymphocyte # 0.83 X10^3/ul (0.83-4.51); Lymphocyte % 6.6 % (19-41); Mean Corp Hgb Conc 33.2 g/dL (32-36); Mean Corpuscular Hgb 28.2 pg (27.0-32.0); Mean Corpuscular Volume 84.8 fL (81-99); Mean Platelet Vol. 10.8 fl (6.2-12.0); Monocyte# 0.32 X10^3/uL; Monocyte% 2.6 % (0-10); NRBC Flagged by Analyzer 0 % (0-5); Neutrophil # 11.28 X10^3/uL (2.7-7.7); Neutrophil % 90.2 % (47-70); Platelet Count 294 K/mm3 (150-450); RBC Distribution Width CV 12.8 % (11.6-14.6); RBC Distribution Width SD 39.5 fl (35.1-43.9); Red Blood Count 4.15 M/mm3 (4.2-5.4); White Blood Count 12.5 K/mm3 (4.4-11.0)
[2021-11-20 06:53] LABS: Anion Gap 7 (5-15); BUN 6 mg/dL (7-18); BUN/Creat Ratio 7.2 RATIO (10-20); Calcium,Total 8.7 mg/dL (8.5-10.1); Chloride 106 mmol/L (98-107); Creatinine, Serum 0.84 mg/dL (0.55-1.02); EST Glomerular Filtration Rate 80 mL/min (>60); Est Glom Filt Rate - Afr Amer 97 mL/min (>60); Estimated Creatinine Clearance 83.34 ml/min; Glucose 169 mg/dL (74-106); Potassium 3.9 mmol/L (3.5-5.1); Sodium Level 137 mmol/L (136-145)
[2021-11-20 09:15] VITALS: BP 113/76; PULSE 80; RESP 12; TEMP 36.6; O2SAT 97
--- NOTE | 2021-11-20 09:21 | PN.CC_ITS ---
Assessment & Plan Assessment/Plan (1) Cough with hemoptysis: (2) Mediastinal mass: PLAN: RECOMMENDATIONS: 1. Okay to discharge on cough suppressant 2. Follow-up as an outpatient in 7 to 10 days to review findings 3. Motrin OTC for costochondritis 4. Likely okay to discontinue antibiotics 5. Follow-up with nurse practitioner in 2 weeks following discharge IMPRESSIONS: 1. Worsening hemoptysis with mediastinal mass Bronchoscopy localized bleeding to the left main nallely. Biopsies have been taken. Patient's hemoptysis has resolved. H&H appears to be appropriate this morning. Preliminary results from bronchoscopy are not suggestive of an acute pneumonia. Likely okay to discharge without antibiotics. Patient may be nefit from cough suppressant therapy with codeine to allow for healing. Clinical suspicion for possible vasculitis. Labs have been sent. Await results and follow-up as an outpatient. Subjective Subjective Patient did okay overnight. Patient had requested to stay after bronchoscopy secondary to chest pain and paroxysmal type coughing. Patient states her hemoptysis has resolved overnight. Patient continues to have significant parasternal pain. Objective Data Objective Data Vital Signs: Vital Signs Temp Pulse Resp BP Pulse Ox 36.5 C L 81 14 111/76 97 11/20/21 05:00 11/20/21 05:00 11/20/21 05:00 11/20/21 05:00 11/20/21 05:00 Oxygen Delivery Method Room Air Weight: 63.1 kg Body Mass Index (BMI) 21.8 Intake & Output: Intake and Output for Last 24 Hours 11/18/21 11/19/21 11/20/21 23:59 23:59 23:59 Intake Total 1940 / 2280 700 / 1150 710 / 710 Balance 1940 / 2280 700 / 1150 710 / 710 Lab / Micro Data Result Diagrams: 11/20/21 05:50 11/20/21 05:50 Labs: Laboratory Results - last 24 hr 11/19/21 06:10: ESR 18 11/19/21 14:00: Fluid Source BRONCHIAL LAVAGE, Fluid Color RED, Fluid Appearance TURBID, Fluid WBC 6, Fluid RBC 04664, Fluid Tot Cell Count TNP, Fluid Neutrophils 77, Fluid Lymphocytes 15, Fluid Monocytes 8, Fl Pathologist Comment May follow, Fluid Comment 2 Not Reportable 11/19/21 14:00: Fluid Source BRONCHIAL LAVAGE, Fluid Color RED, Fluid Appearance TURBID, Fluid WBC 9, Fluid RBC 8800, Fluid Tot Cell Count TNP, Fluid Neutrophils 79, Fluid Lymphocytes 15, Fluid Monocytes 3, Fluid Macrophages 3, Fl Pathologist Comment May follow, Fluid Comment 2 Not Reportable 11/20/21 05:50: WBC 12.5 H, RBC 4.15 L, Hgb 11.7 L, Hct 35.2 L, MCV 84.8, MCH 28.2, MCHC 33.2, RDW Std Deviation 39.5, RDW Coeff of Keely 12.8, Plt Count 294, MPV 10.8, Immature Gran % (Auto) 0.400, Neut % (Auto) 90.2 H, Lymph % (Auto) 6.6 L, [place] % (Auto) 2.6, Eos % (Auto) 0.0, Baso % (Auto) 0.2, Absolute Neuts (auto) 11.3 H, Absolute Lymphs (auto) 0.83, Nucleated RBC % 0 11/20/21 05:50: Sodium 137, Potassium 3.9, Chloride 106, Carbon Dioxide 24.0, Anion Gap 7, BUN 6 L, Creatinine 0.84, Estim Creat Clear Calc 83.34, Est GFR (MDRD) Af Amer 97, Est GFR (MDRD) Non-Af 80, BUN/Creatinine Ratio 7.2 L, Glucose 169 H, Calcium 8.7 Micro: Microbiology 11/18/21 00:35 Blood Culture (Wb) - Anticubital Left Blood Culture - Preliminary No growth in 48 hours. 11/18/21 03:35 Blood Culture (Wb) - Anticubital Left Blood Culture - Preliminary No growth in 48 hours. 11/18/21 14:14 Sputum, Expectorated/Coughed Gram Stain - Final 11/18/21 14:14 Sputum, Expectorated/Coughed Respiratory Culture - Preliminary Appears to be normal respiratory reji. Further studies to follow. 11/18/21 02:19 Nasal Secretion SARS-CoV-2 Antigen (Rapid) - Final Physical Exam Const alert, oriented x3 and no apparent distress General Appearance: cooperative HEENT normocephalic and moist oral mucous membranes Eyes PERRL, EOMs intact bilaterally and conjunctivae normal Neck supple and no JVD Chest Chest Narrative: Significant left parasternal chest pain along with reproducible pain in the left anterior axillary line Chest: localized rib tenderness with anteroposterior compression 8th rib; Negative for crepitus, pectus excavatum or pectus carninatum Resp normal respiratory effort, no retractions, no use of accessory muscles and clear to auscultation bilaterally Auscultation: Negative for crackles, rales, rhonchi or wheezes Cardio regular rate, regular rhythm, S1 normal heart sound, S2 normal heart sound and no murmurs GI soft to palpation, non-tender and non-distended; Negative for hepatosplenomegaly Extremity no clubbing, cyanosis or edema Skin no rashes or lesions noted Neuro no focal motor deficits and no sensory deficits noted Psych affect normal Appearance: appropriate Charges/Coding Visit Charges Inpatient E&M: 46268 Subs Hosp L2
--- NOTE | 2021-11-20 10:38 | PCM.DC ---
Discharge Instructions Diet Discharge Diet: No restrictions Activity Discharge Activity: Return to Normal Activity Weight Bearing Status: Weight bearing as tolerated Dressing / Incision Call your doctor if you observe: Fever of 101 or Higher, Numbness or Tingling, Shortness of breath, Dizziness, Chest pain, Increased palpitations (irregular heartbeat) and Calf discomfort Follow Up Care Please Follow Up With: Primary care provider When: Within the next two weeks. Test Results: Test results from this visit will be discussed in further detail at your follow-up appointment, if applicable. Discharge Plan Admission Admit Date/Time: 11/18/21 04:03 Primary Reason for Your Visit: Hemoptysis. Attending Provider: Amanad Fairbanks Primary Care Provider: Karmen Cardona Consulting Providers: Eriberto Billy ; Adrien Capellan ; Marilyn Peraza NP Discharge Orders/Prescriptions Prescriptions: New ibuprofen 800 mg tablet 800 mg PO Q8H PRN (Reason: pain) Qty: 15 RF: 0 Continued promethazine-codeine 6.25-10 mg/5 mL syrup 5 ml PO Q6H PRN (Reason: cough) 7 Days Qty: 140 RF: 0 Discontinued doxycycline monohydrate 100 mg capsule 100 mg PO BID Qty: 20 RF: 0 Referrals / Follow Up: Eriberto Billy MD [STAFF PHYSICIAN] - See Referral Note (Follow up in 7-10 days to review your Bronchoscopy results. ) Karmen Cardona PA [Primary Care Provider] - Within 2 Weeks Disposition Disposition (needs filled in before D/C Order can be placed): Home, Self Care
[2021-11-20 12:21] LABS: Pathologist Comment/Body Fluid Reviewed
--- NOTE | 2021-11-20 13:58 | DS.PCM_ITS ---
Documented by User: Ricky DIAZ 11/20/21 14:02 Providers Date of Admission: 11/18/21 Date of Discharge: 11/20/21 Primary Care Physician: JOE Draper Consultations 11/18/21 04:10 Consult: Administrative Underwriter / Pulmonary Medicine Routine Consulting Provider: [facility] Reason for Consult: Hemoptysis EMERGENT Consult: No MD Notified: Yes Date Notified: 11/18/21 Time Notified: 04:08 Method of Notification: Verbal Reason For Visit: HEMOPTYSIS Diagnosis Discharge Diagnosis (1) Cough with hemoptysis: Status: Acute Code(s): R04.2 - Hemoptysis (2) Mediastinal mass: Status: Acute Code(s): J98.59 - Other diseases of mediastinum, not elsewhere classified Medications at Discharge Home Medications promethazine-codeine 5 ml PO Q6H PRN 7 Days #140 ml 11/13/21 dextromethorphan-guaifenesin 10 ml PO Q4H PRN #237 ml 11/20/21 ibuprofen 800 mg PO Q8H PRN #15 tab 11/20/21 Hospital Course Procedures Bronchoscopy Summary of Care Provided Minutes Spent on Discharge: 20 Hospital Course: Patient is a 41-year-old female who was admitted to [facility] on 12/08/2021 for evaluation and management of hemoptysis with cough. Course and management as below. 1)Hemoptysis with mediastinal mass Patient underwent bronchoscopy on 11/19/21, multiple telangiectasias and inflammation noted in the right and left lung, biopsy performed, await results. Empiric antibiotics discontinued on recommendation of registered dietician. Patient was provided Motrin and cough syrup to alleviate some of her symptoms of cough and bodily pain. Patient is to follow-up with pulmonology within the next 2 weeks for appropriate bronchoscopy follow-up. Patient seen by Ricky Joiner PA-C, under the supervision of Dr. Fairbanks. Time spent on patient care: 20 minutes. Physical Exam Narrative Patient is a 41-year-old female comfortably resting in bed, alert and orient x3. Denies development of any new symptoms overnight. Does not appear in acute distress. Const alert, oriented x3 and no apparent distress HEENT normocephalic, head/scalp atraumatic and hearing grossly normal bilaterally Eyes conjunctivae normal Neck no lymphadenopathy, supple and no JVD Resp normal respiratory effort, no retractions and no use of accessory muscles Cardio regular rate, regular rhythm and no JVD GI normal to inspection, nondistended, normoactive bowel sounds Extremity normal to inspection Skin no rashes or lesions noted Neuro CN's II-XII intact bilaterally Psych affect normal Weight / BMI Weight Weight: 139 lb 1.787 oz Body Mass Index (BMI) 21.8 ABG / Lab / Microbiology Data Result Diagrams: 11/20/21 05:50 11/20/21 05:50 Laboratory: Laboratory Results - last 24 hr 11/19/21 14:00: Fluid Source BRONCHIAL LAVAGE, Fluid Color RED, Fluid Appearance TURBID, Fluid WBC 6, Fluid RBC 45753, Fluid Tot Cell Count TNP, Fluid Neutrophils 77, Fluid Lymphocytes 15, Fluid Monocytes 8, Fl Pathologist Comment Reviewed, Fluid Comment 2 Not Reportable 11/19/21 14:00: Fluid Source BRONCHIAL LAVAGE, Fluid Color RED, Fluid Appearance TURBID, Fluid WBC 9, Fluid RBC 8800, Fluid Tot Cell Count TNP, Fluid Neutrophils 79, Fluid Lymphocytes 15, Fluid Monocytes 3, Fluid Macrophages 3, Fl Pathologist Comment Reviewed, Fluid Comment 2 Not Reportable 11/20/21 05:50: WBC 12.5 H, RBC 4.15 L, Hgb 11.7 L, Hct 35.2 L, MCV 84.8, MCH 28.2, MCHC 33.2, RDW Std Deviation 39.5, RDW Coeff of Keely 12.8, Plt Count 294, MPV 10.8, Immature Gran % (Auto) 0.400, Neut % (Auto) 90.2 H, Lymph % (Auto) 6.6 L, [place] % (Auto) 2.6, Eos % (Auto) 0.0, Baso % (Auto) 0.2, Absolute Neuts (auto) 11.3 H, Absolute Lymphs (auto) 0.83, Nucleated RBC % 0 11/20/21 05:50: Sodium 137, Potassium 3.9, Chloride 106, Carbon Dioxide 24.0, Anion Gap 7, BUN 6 L, Creatinine 0.84, Estim Creat Clear Calc 83.34, Est GFR (MDRD) Af Amer 97, Est GFR (MDRD) Non-Af 80, BUN/Creatinine Ratio 7.2 L, Glucose 169 H, Calcium 8.7 Microbiology: Microbiology 11/19/21 14:00 Wash - Left Upper Lobe Gram Stain - Final 11/19/21 14:00 Wash - Left Upper Lobe Respiratory Culture - Preliminary Culture exhibits no growth. 11/19/21 14:00 Wash - Left Upper Lobe Gram Stain - Final 11/19/21 14:00 Wash - Left Upper Lobe Respiratory Culture - Preliminary Appears to be normal respiratory reji. Further studies to follow. 11/18/21 14:14 Sputum, Expectorated/Coughed Gram Stain - Final 11/18/21 14:14 Sputum, Expectorated/Coughed Respiratory Culture - Final Mixed normal respiratory reji. No Streptococcus pneumoniae, beta-hemolytic Streptococcus or Staphylococcus aureus isolated. 11/18/21 00:35 Blood Culture (Wb) - Anticubital Left Blood Culture - Preliminary No growth in 48 hours. 11/18/21 03:35 Blood Culture (Wb) - Anticubital Left Blood Culture - Preliminary No growth in 48 hours. 11/18/21 02:19 Nasal Secretion SARS-CoV-2 Antigen (Rapid) - Final D/C Instructions Discharge Diet: No restrictions Weight Bearing Status: Weight bearing as tolerated Call your doctor if you observe: Fever of 101 or Higher, Numbness or Tingling, Shortness of breath, Dizziness, Chest pain, Increased palpitations (irregular heartbeat) and Calf discomfort Please Follow Up With: Primary care provider When: Within the next two weeks. Meaningful Use Info Meaningful Use Diagnoses (Choose all that apply): None applicable Discharge Plan Admission Admit Date/Time: 11/18/21 04:03 Primary Reason for Your Visit: Hemoptysis. Attending Provider: Amanda Fairbanks Primary Care Provider: Karmen Cardona Consulting Providers: Eriberto Billy ; Adrien Capellan ; Marilyn Peraza HARVEST SUPERVISOR Discharge Orders/Prescriptions Prescriptions: New ibuprofen 800 mg tablet 800 mg PO Q8H PRN (Reason: pain) Qty: 15 RF: 0 dextromethorphan-guaifenesin 10-100 mg/5 mL syrup 10 ml PO Q4H PRN (Reason: cough) Qty: 237 RF: 0 Continued promethazine-codeine 6.25-10 mg/5 mL syrup 5 ml PO Q6H PRN (Reason: cough) 7 Days Qty: 140 RF: 0 Discontinued doxycycline monohydrate 100 mg capsule 100 mg PO BID Qty: 20 RF: 0 Referrals / Follow Up: Eriberto Billy MD [STAFF PHYSICIAN] - See Referral Note (Follow up in 7-10 days to review your Bronchoscopy results. ) Karmen Cardona PA [Primary Care Provider] - Within 2 Weeks Disposition Disposition (needs filled in before D/C Order can be placed): Home, Self Care Documented by User: Dr. Amanda Fairbanks MD 11/20/21 17:15 Providers Date of Admission: 11/18/21 Reason For Visit: HEMOPTYSIS Medications at Discharge Home Medications promethazine-codeine 5 ml PO Q6H PRN 7 Days #140 ml 11/13/21 dextromethorphan-guaifenesin 10 ml PO Q4H PRN #237 ml 11/20/21 ibuprofen 800 mg PO Q8H PRN #15 tab 11/20/21 ABG / Lab / Microbiology Data Result Diagrams: 11/20/21 05:50 11/20/21 05:50 Discharge Plan Admission Admit Date/Time: 11/18/21 04:03 Primary Reason for Your Visit: Hemoptysis. Attending Provider: Amanda Fairbanks Primary Care Provider: Karmen Cardona Consulting Providers: Eriberto Billy ; Adrien Capellan ; Marilyn Peraza HARVEST SUPERVISOR Discharge Orders/Prescriptions Prescriptions: New ibuprofen 800 mg tablet 800 mg PO Q8H PRN (Reason: pain) Qty: 15 RF: 0 dextromethorphan-guaifenesin 10-100 mg/5 mL syrup 10 ml PO Q4H PRN (Reason: cough) Qty: 237 RF: 0 Continued promethazine-codeine 6.25-10 mg/5 mL syrup 5 ml PO Q6H PRN (Reason: cough) 7 Days Qty: 140 RF: 0 Discontinued doxycycline monohydrate 100 mg capsule 100 mg PO BID Qty: 20 RF: 0 Referrals / Follow Up: Eriberto Billy MD [STAFF PHYSICIAN] - See Referral Note (Follow up in 7-10 days to review your Bronchoscopy results. ) Karmen Cardona PA [Primary Care Provider] - Within 2 Weeks Disposition Disposition (needs filled in before D/C Order can be placed): Home, Self Care Charges/Coding Addendum Addendum: This patient was seen in conjunction with JOE Porter. I have independently interviewed and examined the patient and reviewed pertinent historical, laboratory, and other data. Please refer to JOE Porter's note for his patient's presentation, findings, and recommendations. I have reviewed and his note and concur with his documentation 41-year-old female with past medical history of splenic mass, history of hilar mass who comes in with hemoptysis. She was managed initially as interstitial pneumonia. Pulmonology was consulted. Patient underwent bronchoscopy on 11/19/21. Postprocedure, patient was slightly groggy, was monitored overnight with no acute events. She was discharged to follow-up with pulmonology within a week. Physical Exam: Gen: Comfortable, not pale, not jaundiced CVS:HS I +II, regular, no murmurs RESP: Diminished at lung bases GI: BS present and normal, soft, nontender, no palpable organs EXT:No edema Time spent coordinating patient's care and discharge, discussing with nursing, discussing with pulmonology: 20minutes Visit Charges Inpatient E&M: 02172 Disch Hosp
[2021-11-20 15:14] LABS: ANTINUCLEAR ANTIBODIES DIRECT Negative (Negative)
[2021-11-22 15:07] LABS: Cytoplasmic Ab (C-ANCA) <1:20 titer (Neg:<1:20)
[2021-11-23 12:11] LABS: CCP IgG Antibodies 6 units (0-19); Perinuclear Ab (P-ANCA) <1:20 titer (Neg:<1:20)
== END 2021-11-20 10:45 | disposition home or self-care (01) ==
LOC: ED 00:36 → PCU 04:04
PROVIDERS: Internal Medicine Critical Care Medicine; Physician Assistant; Admitting Provider Family Medicine; Emergency Provider Emergency Medicine; PCP Physician Assistant; Visit Provider Internal Medicine
PROC: 0BJ08ZZ Inspection of Tracheobronchial Tree, Via Natural or Artificial Opening Endoscopic (ICD-10-PCS; CPT 31622; principal; 2021-11-19 13:15)
DX: R04.2 Hemoptysis (principal); J84.9 Interstitial pulmonary disease, unspecified; R16.1 Splenomegaly, not elsewhere classified; M79.622 Pain in left upper arm; R59.0 Localized enlarged lymph nodes; J98.59 Other diseases of mediastinum, not elsewhere classified; F41.9 Anxiety disorder, unspecified; Z87.01 Personal history of pneumonia (recurrent)
CPT/HCPCS: 31624; 31625; 36415; 71275; 80048; 83605; 85025; 85610; 85652; 85730; 86038; 86140; 86200; 86225; 86235; 86256; 86431; 87015; 87040; 87070; 87116; 87205; 87206; 87252; 87426; 88108; 88305; 88312; 88313; 88341; 88342; 89050; 96374; 96375; 96376; 99218; 99284; J7120; Q9967; A4216; G0378; J2405

== ENCOUNTER 2024-03-25 12:23 | Emergency (ER) | payer OTHER, SELFPAY ==
[2024-03-25 12:24] VITALS: BP 152/116; PULSE 114; RESP 24; TEMP 36.1; O2SAT 94; BMI 22.1
--- NOTE | 2024-03-25 12:27 | EKG12_ITS ---
Test Reason : CP Blood Pressure : / mmHG Vent. Rate : 109 BPM Atrial Rate : 109 BPM P-R Int : 130 ms QRS Dur : 106 ms QT Int : 332 ms P-R-T Axes : 067 053 026 degrees QTc Int : 447 ms Sinus tachycardia Nonspecific ST abnormality Abnormal ECG Confirmed by Chuy Irving ([id number]), book or script editor WILMAN PETTIT ([id number]) on 03/26/2024 2:09:22 PM Referred By: KIKO/EARNEST Confirmed By:Chuy Irving
--- NOTE | 2024-03-25 12:44 | ED.VIS.CHEST ---
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 She states she has had sharp chest pains intermittently for years which became daily over the last 6 months. It is a sharp pain in the left side of her chest that lasts several seconds. She also has shortness of breath and at night has had sweats and chills. Today at 7 AM the sharp left-sided chest pain woke her from sleep and is also radiating down her left arm and is occurring a lot more frequently throughout the day. She has lung disease called fibrosing mediastinitis and is trying to get insurance approval to start infusions. She was told by her [facility] nib assembler, Dr. Perri Berger, that she needs a cardiac bypass but it cannot be done until her lung disease is stabilized. However she also states she has never had a heart catheterization. She denies smoking history. PFS <JOE Cadena - Last Filed: 03/25/24 20:55> [facility] Medical History (Updated 03/25/24 @ 14:38 by JOE Cadena) Fibrosing mediastinitis CAD (coronary artery disease) Influenza B Cyst of spleen Lung nodule Migraines Anxiety Pneumonia Kidney stones Home Medications ?Medication ?Instructions ?Recorded ?Last Taken ?Type potassium chloride 20 mEq 20 meq PO DAILY 7 days #7 tabs 03/25/24 Unknown Rx tablet,extended release(part/cryst) (Klor-Con M) Allergy/AdvReac Type Severity Reaction Status Date / Time No Known Allergies Allergy Verified 10/21/23 07:10 Family History Other Cancer Diabetes Heart disease Surgical History H/O: hysterectomy Social History Smoking Status: Never smoker ROS <JOE Cadena - Last Filed: 03/25/24 20:55> ROS ED ROS Narrative Constitutional: Negative for fever, chills, malaise. CVS: Positive for chest pain. Respiratory: Negative for shortness of breath. GI: Negative for abdominal pain, nausea, vomiting. EXAM <JOE Cadena - Last Filed: 03/25/24 20:55> Physical Exam Narrative Exam Narrative: CONST: Patient sitting in no acute distress. EYES: Normal inspection. NECK: Normal inspection. RESP: No respiratory distress, CTAB. CVS: Tachycardic around 105 bpm, no murmur, no gallop. SKIN: Color normal, no rash, warm, dry, intact. EXTREMITIES: Normal appearance, no pedal edema. NEURO: Alert and answering questions appropriately. PSYCH: Anxious. Const Vital Signs: 03/25/24 12:24 03/25/24 12:30 03/25/24 13:27 Temperature 97.0 F L Temperature Source Temporal Pulse Rate 114 H 89 Respiratory Rate 24 H 14 Respiratory Effort Normal Non-Labored Respiratory Pattern Normal Blood Pressure 152/116 H 121/78 H Blood Pressure Mean 128 92 Pulse Ox 94 98 Oxygen Delivery Method Room Air Room Air 03/25/24 15:11 Temperature Temperature Source Pulse Rate 90 Respiratory Rate 20 H Respiratory Effort Respiratory Pattern Blood Pressure 119/84 H Blood Pressure Mean 95 Pulse Ox 99 Oxygen Delivery Method Room Air <Dr. Fer Phillips MD - Last Filed: 03/25/24 13:43> Physical Exam Const Vital Signs: 03/25/24 12:24 03/25/24 12:30 03/25/24 13:27 Temperature 97.0 F L Temperature Source Temporal Pulse Rate 114 H 89 Respiratory Rate 24 H 14 Respiratory Effort Normal Non-Labored Respiratory Pattern Normal Blood Pressure 152/116 H 121/78 H Blood Pressure Mean 128 92 Pulse Ox 94 98 Oxygen Delivery Method Room Air Room Air 03/25/24 15:11 Temperature Temperature Source Pulse Rate 90 Respiratory Rate 20 H Respiratory Effort Respiratory Pattern Blood Pressure 119/84 H Blood Pressure Mean 95 Pulse Ox 99 Oxygen Delivery Method Room Air MDM <JEO Cadena - Last Filed: 03/25/24 20:55> [facility] Narrative Medical decision making narrative: History gathered from: Patient and family member Patient presents with left-sided chest pain which has been ongoing for months but worsened this morning. She appears anxious but nontoxic. She was initially hypertensive, tachycardic at 114, otherwise stable vital signs. During my exam her heart rate is around 105 and regular with no murmurs. Lungs are clear. She is normotensive and 97% on room air. 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 I also have low concern for ACS as her pain is sharp and intermittent and occurring at rest and not consistent with anginal type symptoms. Her EKG is nonischemic and troponin is 4 and delta is 4. Basic labs only notable for potassium of 2.7. She states she has not had much of an appetite and is only having 1 meal a day. She denies vomiting or diarrhea or volume losses. She was given IV potassium 20 mill equivalents and 40 mg p.o and a prescription for oral potassium 20 mill equivalents daily x 1 week. The radiologist read her chest x-ray as left upper and lower lung infiltrates but on my interpretation I think these are chronic lung changes from her autoimmune lung disease. I do not think she has pneumonia because she has no fever, cough, or leukocytosis. While here her pain was treated with IV Toradol and anxiety with Ativan. I recommended follow-up with her specialists and she was discharged in stable condition. 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 F/M is causing vascular occlusions of the left lung, recommended Rituxan infusions first then follow-up with CT imaging and lung perfusion scans. There is no atherosclerosis on CT. External records reviewed: Echocardiogram at [facility] on 03/09/2024 EF 56%, No significant valvular abnormalities Patient seen and evaluated with EMANUEL. I personally interviewed and examined the patient. I was involved in all aspects of patient's orders, interpretation of results, and treatment. 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 She is being worked up and cared for at the [facility]. Jakub has had left-sided chest pain the last several days. No history of DVT or PE or risk factors. Prior CTAs were negative for blood clots. Physical exam is a middle-aged female vital signs are stable. Her heart rate when I am in the room is around 90. Pulse ox is 97% on room air no hypoxia. HEENT exam unremarkable. Lungs clear. Heart regular rate and rhythm no murmur. Rate about 90. Chest wall and ribs nontender. Abdomen soft nontender. Moving all 4 extremities. Calves are nontender without edema or cords. Equal symmetrical radial pulses. 5 out of 5 fusing furnace loader strength. Dorsi and plantarflexion intact. Patient is awake and alert no focal motor deficits. Lab Data Attestation: I reviewed the patient's lab results. Labs: Laboratory Results - last 24 hr 03/25/24 03/25/24 12:35 14:30 WBC 9.5 RBC 5.13 Hgb 12.5 Hct 39.9 MCV 77.8 L MCH 24.4 L MCHC 31.3 L RDW Std Deviation 41.2 RDW Coeff of Keely 15.1 H Plt Count 343 MPV 10.2 Immature Gran % (Auto) 0.400 Neut % (Auto) 59.1 Lymph % (Auto) 31.2 [place] % (Auto) 7.7 Eos % (Auto) 1.0 Baso % (Auto) 0.6 Absolute Neuts (auto) 5.6 Absolute Lymphs (auto) 2.98 Nucleated RBC % 0 Sodium 138 Potassium 2.7 L* Chloride 100 Carbon Dioxide 29.0 Anion Gap 9 BUN 8 Creatinine 0.90 Estim Creat Clear Calc 76.23 Est GFR (MDRD) Af Amer 87 Est GFR (MDRD) Non-Af 72 BUN/Creatinine Ratio 8.8 L Glucose 121 H Calcium 9.8 Troponin I High Sens 4 4 Radiography Diagnostic Testing: Clinical Impression(s) from Imaging Studies Chest X-Ray 03/25/24 12:48 IMPRESSION: Left upper and lower lung infiltrates. Electronically Signed: Gamal Szymanski MD at 14:33 EDT , EKG Initial EKG: Attestation: I personally reviewed and interpreted this EKG as follows: Interpretation: No Acute Injury Pattern and Sinus Tachycardia Comments: Sinus tachycardia at [address]-T changes, normal intervals <Dr. Fer Phillips MD - Last Filed: 03/25/24 13:43> [facility] Narrative Medical decision making narrative: Patient seen and evaluated with EMANUEL. I personally interviewed and examined the patient. I was involved in all aspects of patient's orders, interpretation of results, and treatment. 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 She is being worked up and cared for at the [facility]. Jakub has had left-sided chest pain the last several days. No history of DVT or PE or risk factors. Prior CTAs were negative for blood clots. Physical exam is a middle-aged female vital signs are stable. Her heart rate when I am in the room is around 90. Pulse ox is 90% on room air no hypoxia. HEENT exam unremarkable. Lungs clear. Heart regular rate and rhythm no murmur. Rate about 90. Chest wall and ribs nontender. Abdomen soft nontender. Moving all 4 extremities. Calves are nontender without edema or cords. Equal symmetrical radial pulses. 5 out of 5 fusing furnace loader strength. Dorsi and plantarflexion intact. Patient is awake and alert no focal motor deficits. History & Record Review Discussion w/independent historian: Patient and Family Lab Data Lab results narrative: CBC shows a white count 9 H&H 12.5 and 39. Platelets 343. Electrolytes show potassium of 2.7 gap 9. BUN and creatinine are 8 and 0.9. Glucose 121. Troponin 4. Chest x-ray shows chronic scarring on the left normal cardiac silhouette. Otherwise unremarkable. Labs: Laboratory Results - last 24 hr 03/25/24 03/25/24 12:35 14:30 WBC 9.5 RBC 5.13 Hgb 12.5 Hct 39.9 MCV 77.8 L MCH 24.4 L MCHC 31.3 L RDW Std Deviation 41.2 RDW Coeff of Keely 15.1 H Plt Count 343 MPV 10.2 Immature Gran % (Auto) 0.400 Neut % (Auto) 59.1 Lymph % (Auto) 31.2 [place] % (Auto) 7.7 Eos % (Auto) 1.0 Baso % (Auto) 0.6 Absolute Neuts (auto) 5.6 Absolute Lymphs (auto) 2.98 Nucleated RBC % 0 Sodium 138 Potassium 2.7 L* Chloride 100 Carbon Dioxide 29.0 Anion Gap 9 BUN 8 Creatinine 0.90 Estim Creat Clear Calc 76.23 Est GFR (MDRD) Af Amer 87 Est GFR (MDRD) Non-Af 72 BUN/Creatinine Ratio 8.8 L Glucose 121 H Calcium 9.8 Troponin I High Sens 4 4 Radiography Diagnostic Testing: Clinical Impression(s) from Imaging Studies Chest X-Ray 03/25/24 12:48 IMPRESSION: Left upper and lower lung infiltrates. Electronically Signed: Gamal Szymanski MD at 14:33 EDT , Rhythm Strip Rhythm Strip: Sinus Tach Rate: 109 Ectopy: None Discharge Plan Triage Chief Complaint: Chest Pain ED Midlevel Provider: Desiree Gibbs ED Provider: Fer Phillips Dx/Rx/DC Orders Clinical Impression: Atypical chest pain, Acute hypokalemia, Fibrosing mediastinitis Instructions: ED Chest Pain, Noncardiac Prescriptions: New potassium chloride [Klor-Con M20] 20 mEq tablet,ER particles/crystals 20 meq PO DAILY 7 Days Qty: 7 0RF Primary Care Provider: Karmen Cardona Referrals: Karmen Cardona PA [Primary Care Provider] - Activity Restrictions/Additional Instructions: Your potassium was low so you were given replacement. Please eat more fruits and vegetables such as bananas over the next few days. Regarding her chest pain, I do not think this is from your heart. I suspect that is from your underlying lung disease and recommend you call your specialist tomorrow. Print Language: Lithuanian Disposition Disposition: Home, Self Care Discharge Date/Time: 03/25/24 16:30
--- NOTE | 2024-03-25 12:48 | RAD_ITS ---
STUDY: X-RAY CHEST REASON FOR EXAM: Female, 43 years old. Chest pain TECHNIQUE: PA and lateral views of the chest. COMPARISON: October 21, 2023 FINDINGS: There are monitoring devices. There are patchy left upper and lower lung increased opacities. There is no demonstrated pleural abnormality. Normal size heart. Normal mediastinum and ca. Normal visualized pulmonary arteries. Normal visualized aortic arch and descending thoracic aorta. Normal visualized thoracic spine. Normal visualized ribs, clavicles, and shoulders. There is no demonstrated abnormality of the visualized soft tissue structures of the upper abdomen. RAD/Chest PA and Lateral IMPRESSION: Left upper and lower lung infiltrates. Electronically Signed: Gamal Szymanski MD at 14:33 EDT ,
[2024-03-25] MEDS: LORazepam 2 MG/ML Syringe 0.5 MG IV (12:58)
[2024-03-25 13:00] LABS: Absolute Lymphocyte Count 2.98 X10^3/uL (0.83-4.51); Absolute Neutrophil Count 5.6 X10^3/uL (2.0-7.7); Basophil# 0.06 X10^3/uL; Basophil% 0.6 % (0-1); Hematocrit 39.9 % (37-47); Hemoglobin 12.5 g/dL (12.0-15.0); Lymphocyte # 2.98 X10^3/ul (0.83-4.51); Lymphocyte % 31.2 % (19-41); Mean Corp Hgb Conc 31.3 g/dL (32-36); Mean Corpuscular Hgb 24.4 pg (27.0-32.0); Mean Corpuscular Volume 77.8 fL (81-99); Mean Platelet Vol. 10.2 fl (6.2-12.0); Monocyte# 0.73 X10^3/uL; Monocyte% 7.7 % (0-10); NRBC Flagged by Analyzer 0 % (0-5); Neutrophil # 5.63 X10^3/uL (2.7-7.7); Neutrophil % 59.1 % (47-70); Platelet Count 343 K/mm3 (150-450); RBC Distribution Width CV 15.1 % (11.6-14.6); RBC Distribution Width SD 41.2 fl (35.1-43.9); Red Blood Count 5.13 M/mm3 (4.2-5.4); White Blood Count 9.5 K/mm3 (4.4-11.0)
[2024-03-25 13:27] VITALS: BP 121/78; PULSE 89; RESP 14; O2SAT 98
[2024-03-25 13:34] LABS: Anion Gap 9 (5-15); BUN 8 mg/dL (7-18); BUN/Creat Ratio 8.8 RATIO (10-20); Calcium,Total 9.8 mg/dL (8.5-10.1); Chloride 100 mmol/L (98-107); EST Glomerular Filtration Rate 72 mL/min (>60); Est Glom Filt Rate - Afr Amer 87 mL/min (>60); Estimated Creatinine Clearance 76.23 ml/min; Glucose 121 mg/dL (74-106); Potassium 2.7 mmol/L (3.5-5.1); Sodium Level 138 mmol/L (136-145); Troponin-I HS 4 pg/mL (3.0-54.0)
[2024-03-25] MEDS: Potassium Chloride 10mEq/100mL 10 MEQ/100 ML IV.SOLN. 100 MEQ IV BOLUS ×2 (13:49→15:10)
[2024-03-25] MEDS: Ketorolac 15 MG/ML Vial IV (13:50)
[2024-03-25] MEDS: Potassium Chloride Oral Tablet 20 MEQ 40 MEQ PO (13:50)
[2024-03-25 14:52] LABS: Troponin-I HS 4 pg/mL (3.0-54.0)
[2024-03-25 15:11] VITALS: BP 119/84; PULSE 90; RESP 20; O2SAT 99
== END 2024-03-25 16:30 | disposition home or self-care (01) ==
PROVIDERS: Physician Assistant; Emergency Provider Emergency Medicine; PCP Physician Assistant; Visit Provider Emergency Medicine
DX: J98.51 Mediastinitis (principal); R07.89 Other chest pain; E87.6 Hypokalemia; I25.10 Atherosclerotic heart disease of native coronary artery without angina pectoris; R68.83 Chills (without fever); F41.9 Anxiety disorder, unspecified
CPT/HCPCS: 71046; 80048; 84484; 85025; 93005; 96365; 96366; 96375; 99283; J7030; J7050; A4216

== ENCOUNTER 2025-02-13 19:40 | Emergency (ER) | payer OTHER, SELFPAY ==
[2025-02-13 19:42] VITALS: BP 128/97; PULSE 79; RESP 15; TEMP 36.4; O2SAT 98; BMI 20.9
[2025-02-13 20:22] LABS: Absolute Lymphocyte Count 1.09 X10^3/uL (0.83-4.51); Absolute Neutrophil Count 5.3 X10^3/uL (2.0-7.7); Basophil# 0.07 X10^3/uL; Eosinophils% 1.4 % (0-5); Hemoglobin 14.2 g/dL (12.0-15.0); Lymphocyte # 1.09 X10^3/ul (0.83-4.51); Lymphocyte % 15.6 % (19-41); Mean Corp Hgb Conc 34.6 g/dL (32-36); Mean Corpuscular Hgb 28.5 pg (27.0-32.0); Mean Corpuscular Volume 82.2 fL (81-99); Mean Platelet Vol. 10.6 fl (6.2-12.0); Monocyte# 0.43 X10^3/uL; Monocyte% 6.2 % (0-10); NRBC Flagged by Analyzer 0 % (0-5); Neutrophil # 5.28 X10^3/uL (2.7-7.7); Neutrophil % 75.5 % (47-70); Platelet Count 313 K/mm3 (150-450); RBC Distribution Width CV 12.7 % (11.6-14.6); Red Blood Count 4.99 M/mm3 (4.2-5.4)
[2025-02-13 20:44] LABS: Internal QC Validated? YES +Cl - CLEAR BKGD; Pregnancy, Serum, hCG Quali. NEGATIVE Negative
[2025-02-13 20:49] LABS: ALB/GLOB Ratio 1.5 RATIO (0.9-2.4); AST(SGOT) 16 U/L (<=31); Alanine Aminotransfer ALT/SGPT 9 U/L (<=34); Albumin, Serum 4.6 g/dL (3.5-5.0); Alkaline Phosphatase 85 U/L (35-104); Anion Gap 14 (5-15); BUN 8 mg/dL (4-19); BUN/Creat Ratio 8.4 RATIO (10-20); Calcium,Total 9.8 mg/dL (7.6-11.0); Carbon Dioxide 25.2 mmol/L (21.0-32.0); Chloride 104 mmol/L (98-108); Creatinine, Serum 0.94 mg/dL (0.70-1.20); EST Glomerular Filtration Rate 78 (>60); Estimated Creatinine Clearance 71.84 ml/min (50-250); Globulin 3.1 g/dL (2.2-4.2); Glucose 98 mg/dL (70-99); Lipase 23 U/L (13-75); Potassium 3.1 mmol/L (3.3-5.1); Protein, Total 7.7 g/dL (5.9-8.4); Sodium Level 143 mmol/L (133-145); Total Bilirubin 0.71 mg/dL (0.00-1.30)
[2025-02-13 21:41] VITALS: BP 130/107; PULSE 69; RESP 18; O2SAT 100
[2025-02-13] MEDS: 0.9% Normal Saline (1000mL) 1,000 ML 1000 ML IV ×2 (21:54→23:05)
[2025-02-13] MEDS: Ondansetron 4 MG/2 ML Vial IV (21:54)
[2025-02-13 21:56] VITALS: BP 130/101; BP 136/80; BP 146/95; PULSE 69; PULSE 70; PULSE 81
[2025-02-13 23:00] VITALS: BP 168/79; PULSE 69; RESP 16; O2SAT 100
--- NOTE | 2025-02-13 23:06 | EX.ED.DYSGE1 ---
HPI History of Present Illness Chief Complaint: Nausea/Vomiting Detail of Chief Complaint: Nausea and vomiting with weight loss Informant: patient Onset/Context/Timing Onset: Month(s) (Approximately 1 month) Context: Sudden Onset Timing: Intermittent Quality: Patient presents because she is vomited 20 times today. Location: GI Current Severity: Severe Maximum Severity: Severe Worsened by: 20 pound weight loss over the past month. Relieved by: Patient was given oral Zofran tablets. 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 She has vomited 20 times today. She is seen by cardiology and pulmonology at [facility]. She did receive prescription for Zofran tablets for her nausea vomiting. This has been ineffective because she vomits the tablets up. She was not given Zofran ODT. She does endorse thirst, dry mouth orthostatic lightheadedness and decreased urine output. She states she feels weak. Patient [place] fever, chills night sweats. Denies headache, visual, ocular auditory symptoms. She denies chest discomfort. She denies shortness of breath. Prior similar symptoms: Yes Recent Illness/Hospitalization: No PFSH PFSH Medical History Fibrosing mediastinitis CAD (coronary artery disease) Influenza B Cyst of spleen Lung nodule Migraines Anxiety Pneumonia Kidney stones Home Medications ?Medication ?Instructions ?Recorded ?Last Taken ?Type acetaminophen 325 mg tablet 325 mg PO Q6H PRN pain 02/13/25 Unknown History (Tylenol) mirtazapine 15 mg tablet (Remeron) 15 mg PO DAILY 02/13/25 Unknown History ondansetron 8 mg disintegrating 8 mg PO Q8H PRN nausea and vomiting 02/13/25 Unknown History tablet metoclopramide HCl 5 mg tablet 5 mg PO .AC and at bedtime #60 tabs 02/14/25 Unknown Rx (Reglan) ondansetron 4 mg disintegrating 4 mg PO Q8H PRN PRN Nausea #20 tabs 02/14/25 Unknown Rx tablet Allergy/AdvReac Type Severity Reaction Status Date / Time No Known Allergies Allergy Verified 02/13/25 19:42 Family History Other Cancer Diabetes Heart disease Surgical History H/O: hysterectomy Social History Smoking Status: Never smoker ROS ROS ED Constitutional Constitutional ED: Reports weight loss; Denies chills, fever(s), subjective or sweats Eyes Eyes: Denies blurry vision or change in vision ENT ENT ED: Denies ear pain, rhinorrhea or sore throat Cardiovascular Cardiovascular: Denies chest pain, palpitations or racing heartbeat Respiratory/Chest Respiratory/Chest: Denies cough, dyspnea or dyspnea on exertion Gastrointestinal Gastrointestinal: Reports nausea and vomiting; Denies abdominal pain or melena Genitourinary Genitourinary ED: Reports other Details: Decreased urine output otherwise negative Musculoskeletal Musculoskeletal: Denies back pain Integumentary Denies rash Neurologic Neurologic: Reports weakness EXAM Physical Exam Const Vital Signs: 02/13/25 19:42 02/13/25 21:41 02/13/25 21:56 Temperature 97.5 F L Temperature Source Temporal Pulse Rate 79 69 Pulse Rate [Lying] 70 Pulse Rate [Sitting (for 1 minute prior to obtaining)] 69 Pulse Rate [Standing (for 1 minute prior to obtaining)] 81 Respiratory Rate 15 18 Blood Pressure 128/97 H 130/107 H Blood Pressure [Lying] 136/80 H Blood Pressure [Sitting (for 1 minute prior to obtaining)] 146/95 H Blood Pressure [Standing (for 1 minute prior to obtaining)] 130/101 H Blood Pressure Mean 107 114 Blood Pressure Mean [Lying] 98 Blood Pressure Mean [Sitting (for 1 minute prior to obtaining)] 112 Blood Pressure Mean [Standing (for 1 minute prior to obtaining)] 110 Pulse Ox 98 100 Oxygen Delivery Method Room Air Room Air 02/13/25 23:00 Temperature Temperature Source Pulse Rate 69 Pulse Rate [Lying] Pulse Rate [Sitting (for 1 minute prior to obtaining)] Pulse Rate [Standing (for 1 minute prior to obtaining)] Respiratory Rate 16 Blood Pressure 168/79 H Blood Pressure [Lying] Blood Pressure [Sitting (for 1 minute prior to obtaining)] Blood Pressure [Standing (for 1 minute prior to obtaining)] Blood Pressure Mean 108 Blood Pressure Mean [Lying] Blood Pressure Mean [Sitting (for 1 minute prior to obtaining)] Blood Pressure Mean [Standing (for 1 minute prior to obtaining)] Pulse Ox 100 Oxygen Delivery Method Room Air Positive well nourished and well developed Constitutional Narrative: Patient is thin. She appears pale. She does appear ill. General Appearance ED: well developed and pallor; Negative for cyanotic or diaphoretic HEENT Reports dry mucous membranes Mouth ED: Yes dry mucous membranes Mouth: dry mucous membranes Eyes PERRL and EOMs intact bilaterally General Eye ED: Negative for pale conjunctiva or scleral icterus Neck no lymphadenopathy, supple and no JVD Chest Wall inspection of chest normal and palpation of chest normal Resp normal respiratory effort and clear to auscultation bilaterally Cardio regular rate, regular rhythm, S1 normal heart sound, S2 normal heart sound and no murmurs GI normal to inspection, nondistended, normoactive bowel sounds, non-tender, non-distended and no masses; Negative for hepatosplenomegaly Back/Spine no CVA tenderness Extremity normal to inspection General Extremety ED: Negative for edema General Extremity: Negative for edema Neuro oriented x3 and CN's II-XII intact bilaterally Sensorium / Orientation: alert Psych mental status grossly normal Skin no rashes or lesions noted, no wounds and No skin turgor normal General Skin Exam: pallor MDM MDM MDM Narrative Medical decision making narrative: Patient with nausea vomiting apparently due to fibrosing mediastinitis. Blood work was obtained to assess H&H and white count. Electrolyte panel to assess renal function, CO2 anion gap and test was ordered. Prior records were reviewed. She was seen March 2024 for chest pain by Dr. Phillips. His record was reviewed. Her records from outside facility was reviewed as well. History & Record Review Additional record(s) reviewed:: Prior outpatient record, Prior ED visit and Prior labs Lab Data Attestation: I reviewed the patient's lab results. Lab results narrative: White count is normal. Competence of metabolic panel is normal. test is negative. Labs: Laboratory Results - last 24 hr 02/13/25 20:15 WBC 7.0 RBC 4.99 Hgb 14.2 Hct 41.0 MCV 82.2 MCH 28.5 MCHC 34.6 RDW Std Deviation 38.0 RDW Coeff of Keely 12.7 Plt Count 313 MPV 10.6 Immature Gran % (Auto) 0.300 Neut % (Auto) 75.5 H Lymph % (Auto) 15.6 L Brantley % (Auto) 6.2 Eos % (Auto) 1.4 Baso % (Auto) 1.0 Absolute Neuts (auto) 5.3 Absolute Lymphs (auto) 1.09 Nucleated RBC % 0 Sodium 143 Potassium 3.1 L Chloride 104 Carbon Dioxide 25.2 Anion Gap 14 BUN 8 Creatinine 0.94 Estim Creat Clear Calc 71.84 Est GFR (MDRD) Non-Af 78 BUN/Creatinine Ratio 8.4 L Glucose 98 Calcium 9.8 Total Bilirubin 0.71 AST 16 ALT 9 Alkaline Phosphatase 85 Total Protein 7.7 Albumin 4.6 Globulin 3.1 Albumin/Globulin Ratio 1.5 Lipase 23 Serum , Qual NEGATIVE Treatment and Re-Evaluation :: Patient received 1 L of normal saline. She had no urge to urinate. Second liter was ordered. She was reassessed at approximately 2301. She has color to her face. She is now smiling. She states she feels 80% better. The Zofran did control her nausea and vomiting. Plan will be to discharge with prescription for Zofran ODT once she receives her second liter of normal saline. I was informed by patient's nurse that she is complaining of nauseousness. 5 mg of Reglan was ordered. Patient has urinated. Patient did pass p.o. challenge. Plan is discharge with prescription for Reglan 1/2-hour AC and bedtime and Zofran ODT for breakthrough. Discharge Plan Triage Chief Complaint: Nausea/Vomiting ED Provider: Juan Bean Dx/Rx/DC Orders Clinical Impression: Nausea & vomiting, Acute dehydration, Acute hypokalemia, Fibrosing mediastinitis, Unintentional weight loss of 5% body weight or less within 1 month Instructions: ED Vomiting (Adult) Prescriptions: New ondansetron 4 mg tablet,disintegrating 4 mg PO Q8H PRN PRN (Reason: Nausea) Qty: 20 0RF metoclopramide HCl [Reglan] 5 mg tablet 5 mg PO .AC and at bedtime Qty: 60 0RF No Action ondansetron 8 mg tablet,disintegrating 8 mg PO Q8H PRN (Reason: nausea and vomiting) Rx Instructions: 1st dose 1-2 hr before radiation mirtazapine [Remeron] 15 mg tablet 15 mg PO DAILY acetaminophen [Tylenol] 325 mg tablet 325 mg PO Q6H PRN (Reason: pain) Primary Care Provider: Care Physician,No Primary Referrals: Care Physician,No Primary [Primary Care Provider] - Activity Restrictions/Additional Instructions: Take the Reglan 1/2-hour before meals and bedtime If you have significant nausea between Reglan tablets take a Zofran oral dissolvable tablet. You should put the tablet under your tongue. Print Language: Citizen Of [place] Disposition Disposition: Home, Self Care
[2025-02-13] MEDS: Metoclopramide 10 MG/2 ML Vial 5 MG IV (23:43)
[2025-02-14 00:28] VITALS: BP 130/90; PULSE 67; RESP 16; TEMP 36.4; O2SAT 98
== END 2025-02-14 00:28 | disposition home or self-care (01) ==
PROVIDERS: Emergency Provider Emergency Medicine; Visit Provider Emergency Medicine
DX: R11.2 Nausea with vomiting, unspecified (principal); J98.51 Mediastinitis; E87.6 Hypokalemia; I25.10 Atherosclerotic heart disease of native coronary artery without angina pectoris; E86.0 Dehydration; Z79.899 Other long term (current) drug therapy
CPT/HCPCS: 80053; 83690; 84703; 85025; 96361; 96374; 96375; 99284; A4216; J2405